=== PATIENT | female | born 1960 | race African-American/Black ===

== ENCOUNTER 2020-08-18 05:15 | Day surgery (SDC) | payer OTHER ==
[2020-08-16 18:12] VITALS: BMI 35.6
[2020-08-18] MEDS ORDERED: MIDAZOLAM HCL 2 MG/2 ML SINGLE DOSE VIAL ONE ×2 (14:38)
[2020-08-18] MEDS ORDERED: PROPOFOL 20 ML ONE (14:44)
[2020-08-18] MEDS ORDERED: ONDANSETRON 4 MG/2 ML VIAL IVPUSH PRN (15:26)
[2020-08-18] MEDS ORDERED: oxyCODONE HCL 5 MG TABLET PO PRN (15:26)
[2020-08-18] MEDS ORDERED: PROMETHAZINE HCL 25 MG/1 ML VIAL IVPB PRN (15:26)
[2020-08-18] MEDS ORDERED: LACTATED RINGERS SOLUTION 1,000 ML IV SCH (15:30)
[2020-08-18 16:37] VITALS: TEMP 97.8
[2020-08-18 17:08] VITALS: BP 162/88; PULSE 74
== END 2020-08-18 17:50 | disposition home or self-care (01) ==
LOC: JASU-SURG 05:15
PROVIDERS: ATTEND Obstetrics & Gynecology
PROC: 0UJD8ZZ Inspection of Uterus and Cervix, Via Natural or Artificial Opening Endoscopic (ICD-10-PCS; 2020-08-18)
PROC: 0UB97ZX Excision of Uterus, Via Natural or Artificial Opening, Diagnostic (ICD-10-PCS; principal; 2020-08-18 14:00)
PROC: 0UDB7ZX Extraction of Endometrium, Via Natural or Artificial Opening, Diagnostic (ICD-10-PCS; 2020-08-18 14:00)
DX: N95.0 Postmenopausal bleeding (principal); N84.0 Polyp of corpus uteri
CPT/HCPCS: 86850; 86900; 86901; 88305-TC; 94760

== ENCOUNTER 2020-10-07 02:56 | Emergency (ER) | payer OTHER ==
[2020-10-07 03:18] VITALS: PULSE 108; TEMP 97.6; BMI 34.3
[2020-10-07 03:25] VITALS: BP 180/96
[2020-10-07] MEDS ORDERED: guaiFENesin/D-METHORPHAN HB 10 ML UNIT-DOSE CUPS PO ONE (03:32)
[2020-10-07 03:44] LABS: BASO % 0.6 % (0-2.0); EOS % 2.6 % (0-4.5); HEMATOCRIT 43.7 % (32.4-45.2); HEMOGLOBIN 14.2 GM/dL (10.7-15.3); LYMPH % 27.9 % (8-40); MCH 29.1 pg (25.7-33.7); MCHC 32.5 g/dl (32.0-36.0); MEAN CELL VOLUME 89.5 fl (80-96); MEAN PLT VOLUME 9.2 fl (7.5-11.1); MONO % 4.6 % (3.8-10.2); NEUT % 64.3 % (42.8-82.8); PLATELET COUNT 270 K/MM3 (134-434); RBC 4.89 M/mm3 (3.60-5.2); RDW 15.3 % (11.6-15.6); WHITE BLOOD COUNT 8.2 K/mm3 (4.0-10.0)
[2020-10-07 04:02] LABS: CHLORIDE 108 mmol/L (98-107); POTASSIUM 3.5 mmol/L (3.5-5.1); SODIUM 142 mmol/L (136-145)
[2020-10-07 04:04] LABS: ALBUMIN 3.5 g/dl (3.4-5.0); ANION GAP 8 MMOL/L (8-16); BLOOD UREA NITROGEN 39.2 mg/dL (7-18); CALCIUM 8.9 mg/dL (8.5-10.1); CO2 26 mmol/L (21-32); GLUCOSE,RANDOM 140 mg/dL (74-106)
[2020-10-07 04:07] LABS: CREATININE 1.3 mg/dL (0.55-1.3); SGOT/AST 29 U/L (15-37); SGPT/ALT 35 U/L (13-61)
[2020-10-07 04:09] LABS: BILIRUBIN,TOTAL 0.3 mg/dL (0.2-1); TOT PROT 7.8 g/dl (6.4-8.2)
[2020-10-07 04:10] LABS: ALK PHOS 95 U/L (45-117)
[2020-10-07 04:12] LABS: N-TERMINAL BNP 1333.5 pg/ml (5-125)
[2020-10-07] MEDS ORDERED: methylPREDNISolone NA SUCC 125 MG/2 ML VIAL IVPUSH ONE (04:47)
[2020-10-07] MEDS ORDERED: AZITHROMYCIN 250 MG TABLET PO ONE (04:54)
[2020-10-07] MEDS ORDERED: guaiFENesin/D-METHORPHAN HB 10 ML UNIT-DOSE CUPS ONE (04:59)
[2020-10-07] MEDS ORDERED: methylPREDNISolone NA SUCC 125 MG/2 ML VIAL ONE (04:59)
[2020-10-07] MEDS ORDERED: AZITHROMYCIN 250 MG TABLET ONE (04:59)
== END 2020-10-07 05:44 | disposition home or self-care (01) ==
LOC: JER 02:56
PROC: 3E033GC Introduction of Other Therapeutic Substance into Peripheral Vein, Percutaneous Approach (ICD-10-PCS; principal; 2020-10-07)
DX: R05 Cough (principal); R06.2 Wheezing; Z11.52 Encounter for screening for COVID-19
CPT/HCPCS: 36415; 71045-TC-FY; 80053; 83880; 84484; 85025; 85730; 93005; 93010; 99285-25; C9803; U0003

== ENCOUNTER 2021-01-31 23:47 | Emergency (ER) | payer OTHER ==
[2021-02-01 00:19] VITALS: BP 167/80; PULSE 87; TEMP 98.9; BMI 32.3
[2021-02-01] MEDS ORDERED: methylPREDNISolone NA SUCC 125 MG/2 ML VIAL IVPUSH ONE (00:19)
[2021-02-01] MEDS ORDERED: ALBUTEROL SO4 2.5/IPRATROPIUM 0.5 INH SOL 3 ML VIAL.NEB. NEB ONE ×2 (00:20)
[2021-02-01] MEDS ORDERED: methylPREDNISolone NA SUCC 125 MG/2 ML VIAL ONE (00:20)
[2021-02-01] MEDS ORDERED: MAGNESIUM SULF 50% (8.12 MEQ/2 ML-1 GM VIAL) IVPB ONE (00:20)
[2021-02-01] MEDS ORDERED: MAGNESIUM SULFATE IN WATER 2 GM/50 ML IVPB IVPB ONE (00:20)
[2021-02-01 00:49] LABS: HEMATOCRIT 43.6 % (32.4-45.2); HEMOGLOBIN 14.1 GM/dL (10.7-15.3); MCHC 32.3 g/dl (32.0-36.0); MEAN CELL VOLUME 89.8 fl (80-96); MEAN PLT VOLUME 9.1 fl (7.5-11.1); PLATELET COUNT 255 K/MM3 (134-434); RBC 4.86 M/mm3 (3.60-5.2); RDW 15.5 % (11.6-15.6)
[2021-02-01 01:10] LABS: CHLORIDE 110 mmol/L (98-107); SODIUM 143 mmol/L (136-145)
[2021-02-01 01:12] LABS: CALCIUM 8.3 mg/dL (8.5-10.1)
[2021-02-01 01:13] LABS: ALBUMIN 3.7 g/dl (3.4-5.0); ANION GAP 6 MMOL/L (8-16); BLOOD UREA NITROGEN 36.9 mg/dL (7-18); CO2 27 mmol/L (21-32); GLUCOSE,RANDOM 129 mg/dL (74-106)
[2021-02-01 01:15] LABS: SGPT/ALT 24 U/L (13-61)
[2021-02-01 01:16] LABS: CREATININE 1.4 mg/dL (0.55-1.3); SGOT/AST 19 U/L (15-37)
[2021-02-01 01:17] LABS: BILIRUBIN,TOTAL 0.4 mg/dL (0.2-1); TOT PROT 7.8 g/dl (6.4-8.2)
[2021-02-01 01:18] LABS: ALK PHOS 81 U/L (45-117)
[2021-02-01] MEDS ORDERED: SODIUM CHLORIDE 0.9% 500 ML INFUS.BAG IV ONE (01:18)
== END 2021-02-01 02:28 | disposition home or self-care (01) ==
LOC: JER 23:47
PROC: 3E0F7GC Introduction of Other Therapeutic Substance into Respiratory Tract, Via Natural or Artificial Opening (ICD-10-PCS; principal; 2021-01-31)
PROC: 3E033GC Introduction of Other Therapeutic Substance into Peripheral Vein, Percutaneous Approach (ICD-10-PCS; 2021-01-31)
PROC: 3E033GC Introduction of Other Therapeutic Substance into Peripheral Vein, Percutaneous Approach (ICD-10-PCS; 2021-01-31)
DX: J45.901 Unspecified asthma with (acute) exacerbation (principal)
CPT/HCPCS: 36415; 71045-TC-FY; 80053; 84484; 85027; 93005; 93010; 99291

== ENCOUNTER 2021-02-18 02:43 | Emergency (ER) | payer OTHER ==
[2021-02-18] MEDS ORDERED: ALBUTEROL SO4 2.5/IPRATROPIUM 0.5 INH SOL 3 ML VIAL.NEB. NEB ONE (02:53)
[2021-02-18 03:01] VITALS: BP 161/93; TEMP 98.1; BMI 33.4
[2021-02-18] MEDS ORDERED: methylPREDNISolone NA SUCC 125 MG/2 ML VIAL IVPUSH ONE (03:57)
[2021-02-18] MEDS ORDERED: methylPREDNISolone NA SUCC 125 MG/2 ML VIAL ONE (04:01)
[2021-02-18 05:27] VITALS: PULSE 86
== END 2021-02-18 05:28 | disposition home or self-care (01) ==
LOC: JER 02:43
PROC: 3E033GC Introduction of Other Therapeutic Substance into Peripheral Vein, Percutaneous Approach (ICD-10-PCS; principal; 2021-02-18)
DX: R05 Cough (principal)
CPT/HCPCS: 71045-TC-FY; 93005; 93010; 99284-25

== ENCOUNTER 2021-10-21 22:29 | Observation (INO) | payer OTHER ==
[2021-10-21] MEDS ORDERED: ALBUTEROL SO4 2.5/IPRATROPIUM 0.5 INH SOL 3 ML VIAL.NEB. NEB ONE (23:03)
[2021-10-21] MEDS: ALBUTEROL SO4 2.5/IPRATROPIUM 0.5 INH SOL 3 ML VIAL.NEB. NEB SCH ×3 (23:10→23:45)
[2021-10-21 23:34] VITALS: BMI 33.3
[2021-10-21] MEDS ORDERED: ACETAMINOPHEN 325 MG TABLET (FP) PO ONE (23:50)
[2021-10-22] MEDS: ALBUTEROL SO4 2.5/IPRATROPIUM 0.5 INH SOL 3 ML VIAL.NEB. NEB SCH
[2021-10-22] MEDS ORDERED: NIFEdipine E.R. 90 MG TABLET PO ONE ×3 (00:18→23:50)
[2021-10-22] MEDS ORDERED: ACETAMINOPHEN 325 MG TABLET (FP) ONE (00:21)
[2021-10-22] MEDS ORDERED: NIFEdipine E.R. 30 MG TABLET ONE (00:21)
[2021-10-22] MEDS ORDERED: ALBUTEROL SO4 2.5/IPRATROPIUM 0.5 INH SOL 3 ML VIAL.NEB. NEB ONE (00:28)
[2021-10-22 03:03] LABS: HEMATOCRIT 43.4 % (32.4-45.2); HEMOGLOBIN 14.3 GM/dL (10.7-15.3); MCH 29.5 pg (25.7-33.7); MCHC 32.9 g/dl (32.0-36.0); MEAN CELL VOLUME 89.6 fl (80-96); MEAN PLT VOLUME 8.9 fl (7.5-11.1); PLATELET COUNT 248 10^3/uL (134-434); RBC 4.84 M/mm3 (3.60-5.2); RDW 15.2 % (11.6-15.6); WHITE BLOOD COUNT 9.3 K/mm3 (4.0-10.0)
[2021-10-22 03:18] LABS: CHLORIDE 111 mmol/L (98-107); SODIUM 143 mmol/L (136-145)
[2021-10-22 03:19] LABS: ALBUMIN 3.3 g/dl (3.4-5.0); ANION GAP 7 MMOL/L (8-16); BLOOD UREA NITROGEN 34.8 mg/dL (7-18); CALCIUM 9.1 mg/dL (8.5-10.1); CO2 25 mmol/L (21-32); GLUCOSE,RANDOM 154 mg/dL (74-106); MAGNESIUM 2.1 mg/dL (1.8-2.4)
[2021-10-22 03:23] LABS: CREATININE 1.6 mg/dL (0.55-1.3); SGOT/AST 25 U/L (15-37); SGPT/ALT 38 U/L (13-61)
[2021-10-22 03:24] LABS: BILIRUBIN,TOTAL 0.2 mg/dL (0.2-1); TOT PROT 7.4 g/dl (6.4-8.2)
[2021-10-22 03:25] LABS: ALK PHOS 79 U/L (45-117)
[2021-10-22] MEDS ORDERED: SODIUM CHLORIDE 1,000 ML IV STA (03:46)
[2021-10-22] MEDS ORDERED: AZITHROMYCIN 500 MG TABLET PO ONE (03:46)
[2021-10-22] MEDS ORDERED: AZITHROMYCIN 250 MG TABLET ONE (03:57)
[2021-10-22 04:23] LABS: ANISOCYTOSIS 0; HELMET CELLS 0; HOWELL-JOLLY BODIES 0; MACROCYTOSIS 0; OVALOCYTE 0; PLATELET ESTIMATE NORMAL; ROULEAU 0; SICKELED CELLS 0; TARGET CELLS 0; TEAR DROP CELLS 0; TOXIC GRANULATION 0
[2021-10-22] MEDS ORDERED: ALBUTEROL SO4 HFA INHALER IH PRN (07:33)
[2021-10-22] MEDS ORDERED: ALBUTEROL SO4 0.083% IH SOL 2.5 MG/3 ML VIAL.NEB. NEB PRN (08:01)
[2021-10-22] MEDS ORDERED: NIFEdipine E.R. 30 MG TABLET PO SCH (09:00)
[2021-10-22] MEDS ORDERED: NIFEdipine E.R. 90 MG TABLET PO SCH ×3 (09:00→19:00)
[2021-10-22] MEDS ORDERED: NIFEdipine E.R 60 MG TABLET PO SCH (09:00)
[2021-10-22] MEDS ORDERED: ASPIRIN 81 MG CHEWABLE TABLETS PO ONE (10:15)
[2021-10-22] MEDS: NIFEdipine E.R 60 MG TABLET PO SCH (10:18)
[2021-10-22] MEDS: NEBIVOLOL 10 MG TABLET (FP) PO SCH (10:20)
[2021-10-22] MEDS ORDERED: ASPIRIN 81 MG CHEWABLE TABLETS ONE (10:31)
[2021-10-22 12:30] LABS: BLOOD UREA NITROGEN 30.6 mg/dL (7-18); CALCIUM 8.5 mg/dL (8.5-10.1); MAGNESIUM 2.1 mg/dL (1.8-2.4)
[2021-10-22 12:33] LABS: PHOSPHOROUS 2.8 mg/dL (2.5-4.9)
[2021-10-22 12:35] LABS: CREATININE 1.4 mg/dL (0.55-1.3)
[2021-10-22] MEDS ORDERED: HEPARIN NA (PORCINE) 5,000 UNITS/ML 1ML VIAL ONE ×2 (13:21→21:34)
[2021-10-22] MEDS: HEPARIN NA (PORCINE) 5,000 UNITS/ML 1ML VIAL SQ SCH ×2 (13:28→21:44)
[2021-10-22 15:12] LABS: EPI CELLS >36 /uL (0-25.1); HYALINE CASTS 3 /uL (0-3.1); PH,URINE 6.5 (5.0-8.0); URINE APPEARANCE CLEAR; URINE BACTERIA 4 /uL (0-1359); URINE BILIRUBIN NEGATIVE (NEGATIVE); URINE COLOR YELLOW; URINE GLUCOSE (UA) NEGATIVE (NEGATIVE); URINE KETONE NEGATIVE (NEGATIVE); URINE LEUK ESTERASE NEGATIVE (NEGATIVE); URINE NITRITE NEGATIVE (NEGATIVE); URINE PROTEIN 4+ (NEGATIVE); URINE RBC 5 /uL (0-23.9); URINE UROBILINOGEN 0.2 mg/dL (0.2-1.0)
[2021-10-22 15:22] LABS: URINE WBC 61.2 /uL (0-25.8)
[2021-10-22] MEDS ORDERED: ATORVASTATIN CA 40 MG TABLET (FP) ONE (21:34)
[2021-10-22] MEDS ORDERED: ATORVASTATIN CA 40 MG TABLET (FP) PO SCH (22:00)
[2021-10-23] MEDS ORDERED: HEPARIN NA (PORCINE) 5,000 UNITS/ML 1ML VIAL ONE ×2 (06:17→15:13)
[2021-10-23] MEDS ORDERED: NIFEdipine E.R. 30 MG TABLET ONE (06:52)
[2021-10-23] MEDS: HEPARIN NA (PORCINE) 5,000 UNITS/ML 1ML VIAL SQ SCH (06:54)
[2021-10-23] MEDS: NIFEdipine E.R 60 MG TABLET PO SCH (06:55)
[2021-10-23] MEDS ORDERED: NIFEdipine E.R. 30 MG TABLET PO SCH ×2 (07:00)
[2021-10-23 07:08] VITALS: TEMP 98.2
[2021-10-23 08:05] LABS: HEMATOCRIT 39.2 % (32.4-45.2); HEMOGLOBIN 12.4 GM/dL (10.7-15.3); MCH 28.7 pg (25.7-33.7); MCHC 31.6 g/dl (32.0-36.0); MEAN CELL VOLUME 90.8 fl (80-96); MEAN PLT VOLUME 9.3 fl (7.5-11.1); PLATELET COUNT 243 10^3/uL (134-434); RBC 4.31 M/mm3 (3.60-5.2); RDW 15.5 % (11.6-15.6); WHITE BLOOD COUNT 8.5 K/mm3 (4.0-10.0)
[2021-10-23 08:13] LABS: BLOOD UREA NITROGEN 33.7 mg/dL (7-18); CALCIUM 7.9 mg/dL (8.5-10.1); MAGNESIUM 2.3 mg/dL (1.8-2.4)
[2021-10-23 08:17] LABS: CREATININE 1.3 mg/dL (0.55-1.3); PHOSPHOROUS 2.6 mg/dL (2.5-4.9)
[2021-10-23] MEDS ORDERED: ALBUTEROL SO4 HFA INHALER IH ONE (09:36)
[2021-10-23] MEDS ORDERED: ASPIRIN COATED 81 MG TABLET.EC PO SCH (10:00)
[2021-10-23] MEDS ORDERED: predniSONE 20 MG TABLET (UD) PO SCH (10:30)
[2021-10-23] MEDS ORDERED: predniSONE 20 MG TABLET (UD) ONE (11:25)
[2021-10-23] MEDS ORDERED: ASPIRIN COATED 81 MG TABLET.EC ONE (11:25)
[2021-10-23] MEDS: NEBIVOLOL 10 MG TABLET (FP) PO SCH (11:35)
[2021-10-23] MEDS ORDERED: AZITHROMYCIN 250 MG TABLET PO SCH (14:30)
[2021-10-23 15:32] VITALS: BP 148/79; PULSE 76
[2021-10-23] MEDS ORDERED: NIFEdipine E.R. 90 MG TABLET PO SCH (19:00)
== END 2021-10-23 19:41 | disposition home or self-care (01) ==
LOC: JER 22:29 → JERBED 10-22 03:45
PROVIDERS: ADMIT Internal Medicine; ATTEND Internal Medicine
PROC: 3E0F7GC Introduction of Other Therapeutic Substance into Respiratory Tract, Via Natural or Artificial Opening (ICD-10-PCS; principal; 2021-10-22)
PROC: 3E023GC Introduction of Other Therapeutic Substance into Muscle, Percutaneous Approach (ICD-10-PCS; 2021-10-22)
PROC: 3E0337Z Introduction of Electrolytic and Water Balance Substance into Peripheral Vein, Percutaneous Approach (ICD-10-PCS; 2021-10-22)
DX: I12.9 Hypertensive chronic kidney disease with stage 1 through stage 4 chronic kidney disease, or unspecified chronic kidney disease (principal); N18.9 Chronic kidney disease, unspecified; N17.9 Acute kidney failure, unspecified; J42 Unspecified chronic bronchitis; E78.5 Hyperlipidemia, unspecified; E66.8 Other obesity; Z68.33 Body mass index [BMI] 33.0-33.9, adult; Z29.9 Encounter for prophylactic measures, unspecified; R79.89 Other specified abnormal findings of blood chemistry
CPT/HCPCS: 36415; 71045-TC-FY; 76775-TC; 80048; 80053; 81003; 82550; 82570; 83036; 83735; 84100; 84300; 84484; 85025; 85027; 93005; 93010; 99285-25; C9803; G0378; J1644; U0003; U0005

== ENCOUNTER 2021-12-17 04:44 | Day surgery (SDC) | payer OTHER ==
[2021-12-13 11:34] VITALS: BMI 32.4
[2021-12-17] MEDS ORDERED: PROPOFOL 20 ML ONE (12:49)
[2021-12-17] MEDS ORDERED: MIDAZOLAM HCL 2 MG/2 ML SINGLE DOSE VIAL ONE (12:49)
[2021-12-17] MEDS ORDERED: ceFAZolin SODIUM 1 GM VIAL IVPB ONE (13:06)
[2021-12-17] MEDS ORDERED: oxyCODONE HCL 5 MG TABLET PO PRN (13:17)
[2021-12-17] MEDS ORDERED: ONDANSETRON 4 MG/2 ML VIAL IVPUSH PRN (13:17)
[2021-12-17] MEDS ORDERED: LACTATED RINGERS SOLUTION 1,000 ML IV SCH (13:30)
[2021-12-17] MEDS ORDERED: KETOROLAC TROMETHAMINE 30 MG/1 ML VIAL ONE (14:35)
[2021-12-17 16:37] VITALS: BP 152/76; PULSE 52; TEMP 96.9
== END 2021-12-17 17:05 | disposition home or self-care (01) ==
LOC: JASU-SURG 04:44
PROVIDERS: ATTEND Obstetrics & Gynecology
PROC: 0UB98ZX Excision of Uterus, Via Natural or Artificial Opening Endoscopic, Diagnostic (ICD-10-PCS; principal; 2021-12-17 11:00)
PROC: 0UDB7ZX Extraction of Endometrium, Via Natural or Artificial Opening, Diagnostic (ICD-10-PCS; 2021-12-17 11:00)
DX: N84.0 Polyp of corpus uteri (principal)
CPT/HCPCS: 88305-TC; 94760

== ENCOUNTER 2024-05-01 01:56 | Inpatient (IN) | payer OTHER ==
[2024-05-01] MEDS: ALBUTEROL SO4 2.5/IPRATROPIUM 0.5 INH SOL 3 ML VIAL.NEB. NEB SCH (02:14)
[2024-05-01] MEDS: methylPREDNISolone NA SUCC 125 MG/2 ML VIAL IVPUSH ONE (02:14)
[2024-05-01 02:19] VITALS: BMI 28.4
[2024-05-01] MEDS ORDERED: NITROGLYCERIN SUBLINGUAL 1/150 0.4 MG TAB ONE (02:22)
[2024-05-01] MEDS ORDERED: NITROGLYCERIN 25MG/D5W 250ML 25 MG/250 ML ML IVPB ONE (02:24)
[2024-05-01 02:26] LABS: BASO % 0.9 % (0-2.0); EOS % 4.7 % (0-4.5); HEMATOCRIT 41.5 % (32.4-45.2); HEMOGLOBIN 13.4 GM/dL (10.7-15.3); LYMPH % 44.9 % (8-40); MCHC 32.4 g/dl (32.0-36.0); MEAN CELL VOLUME 89.4 fl (80-96); MEAN PLT VOLUME 8.9 fl (7.5-11.1); MONO % 9.2 % (3.8-10.2); NEUT % 40.3 % (42.8-82.8); PLATELET COUNT 244 10^3/uL (134-434); RBC 4.63 M/mm3 (3.60-5.2); RDW 15.3 % (11.6-15.6); WHITE BLOOD COUNT 9.4 K/mm3 (4.0-10.0)
[2024-05-01] MEDS ORDERED: FUROSEMIDE 40 MG/4 ML INJECTABLE VIAL ONE (02:28)
[2024-05-01 02:39] LABS: INR 0.94 (0.83-1.09); PROTHROMBIN TIME (PATIENT) 10.6 SEC (9.7-13.0)
[2024-05-01] MEDS: NITROGLYCERIN SUBLINGUAL 1/150 0.4 MG TAB SL ONE (02:40)
[2024-05-01 02:42] LABS: ACTIVATED PTT 34.4 SECONDS (25.2-36.5)
[2024-05-01] MEDS: NITROGLYCERIN 25MG/D5W 250ML 25 MG/250 ML ML IVPB SCH (02:45)
[2024-05-01 02:48] LABS: POTASSIUM 3.7 mmol/L (3.5-5.1)
[2024-05-01 02:50] LABS: ALBUMIN 3.7 g/dl (3.4-5.0); CALCIUM 8.8 mg/dL (8.5-10.1)
[2024-05-01 02:51] LABS: BLOOD UREA NITROGEN 49.9 mg/dL (7-18); MAGNESIUM 2.2 mg/dL (1.8-2.4)
[2024-05-01 02:54] LABS: CREATININE 1.5 mg/dL (0.55-1.3); PHOSPHOROUS 3.5 mg/dL (2.5-4.9); VENOUS BASE EXCESS -8.9 mmol/L (-2-2); VENOUS O2 SATURATION 89.7 % (70-80); VENOUS PCO2 68.2 mmHg (38-52)
[2024-05-01 02:55] LABS: BILIRUBIN,TOTAL 0.4 mg/dL (0.2-1); TOT PROT 7.7 g/dl (6.4-8.2)
[2024-05-01 02:59] LABS: N-TERMINAL BNP 3481.5 pg/ml (5-125)
[2024-05-01] MEDS: FUROSEMIDE 40 MG/4 ML INJECTABLE VIAL IVPUSH ONE (03:00)
[2024-05-01 03:03] LABS: VENOUS PH 7.12 (7.310-7.410)
[2024-05-01 05:09] LABS: ARTERIAL BLD GAS O2 SATURATION 99.4 % (95-98); ARTERIAL BLOOD GAS PO2 212.7 mmHg (80-100); ARTERIAL BLOOD GAS pH 7.367 (7.350-7.450)
[2024-05-01 05:44] LABS: VENT MODE S/T; VENT RATE 12
[2024-05-01] MEDS ORDERED: HEPARIN NA (PORCINE) 5,000 UNITS/ML 1ML VIAL ONE (09:59)
[2024-05-01] MEDS: HEPARIN NA (PORCINE) 5,000 UNITS/ML 1ML VIAL SQ SCH (10:05)
[2024-05-01] MEDS ORDERED: ACETAMINOPHEN 500 MG TABLET (FP) ONE (11:01)
[2024-05-01] MEDS: ACETAMINOPHEN 325 MG TABLET (FP) PO PRN (12:00)
[2024-05-01] MEDS: EZETIMIBE 10 MG TABLET (FP) PO SCH (21:16)
[2024-05-02] MEDS: NIFEdipine E.R. 90 MG TABLET PO ONE (02:36)
[2024-05-02] MEDS: NEBIVOLOL 10 MG TABLET (FP) PO ONE (04:22)
[2024-05-02 08:14] LABS: EPI CELLS >36 /uL (0-25.1); HYALINE CASTS 0 /uL (0-3.1); PH,URINE 5.5 (5.0-8.0); URINE APPEARANCE CLEAR; URINE BACTERIA 418 /uL (0-1359); URINE BILIRUBIN NEGATIVE (NEGATIVE); URINE COLOR YELLOW; URINE GLUCOSE (UA) NEGATIVE (NEGATIVE); URINE KETONE NEGATIVE (NEGATIVE); URINE LEUK ESTERASE NEGATIVE (NEGATIVE); URINE NITRITE NEGATIVE (NEGATIVE); URINE PROTEIN 3+ (NEGATIVE); URINE RBC 8 /uL (0-23.9); URINE UROBILINOGEN 0.2 mg/dL (0.2-1.0); URINE WBC 8 /uL (0-25.8)
[2024-05-02] MEDS: FUROSEMIDE 40 MG/4 ML INJECTABLE VIAL IVPUSH SCH (15:44)
[2024-05-03 07:47] LABS: BASO % 1.1 % (0-2.0); EOS % 3.1 % (0-4.5); HEMATOCRIT 39.1 % (32.4-45.2); HEMOGLOBIN 12.6 GM/dL (10.7-15.3); LYMPH % 43.4 % (8-40); MCHC 32.3 g/dl (32.0-36.0); MEAN CELL VOLUME 89.7 fl (80-96); MEAN PLT VOLUME 9.4 fl (7.5-11.1); MONO % 7.3 % (3.8-10.2); NEUT % 45.1 % (42.8-82.8); PLATELET COUNT 218 10^3/uL (134-434); RBC 4.36 M/mm3 (3.60-5.2); RDW 15.4 % (11.6-15.6); WHITE BLOOD COUNT 6.8 K/mm3 (4.0-10.0)
[2024-05-03 08:11] LABS: POTASSIUM 3.8 mmol/L (3.5-5.1)
[2024-05-03 08:18] LABS: ALBUMIN 3.2 g/dl (3.4-5.0); CALCIUM 8.5 mg/dL (8.5-10.1)
[2024-05-03 08:19] LABS: BLOOD UREA NITROGEN 50.8 mg/dL (7-18)
[2024-05-03 08:21] LABS: BILIRUBIN,TOTAL 0.4 mg/dL (0.2-1); TOT PROT 6.8 g/dl (6.4-8.2)
[2024-05-03 08:22] LABS: CREATININE 1.5 mg/dL (0.55-1.3)
[2024-05-03] MEDS: NEBIVOLOL 10 MG TABLET (FP) PO SCH (09:12)
[2024-05-03] MEDS: NIFEdipine E.R. 90 MG TABLET PO SCH (09:13)
[2024-05-03 14:23] LABS: EPI CELLS 5 /uL (0-25.1); HYALINE CASTS 0 /uL (0-3.1); URINE APPEARANCE CLEAR; URINE BACTERIA 14 /uL (0-1359); URINE BILIRUBIN NEGATIVE (NEGATIVE); URINE COLOR YELLOW; URINE GLUCOSE (UA) NEGATIVE (NEGATIVE); URINE KETONE NEGATIVE (NEGATIVE); URINE LEUK ESTERASE NEGATIVE (NEGATIVE); URINE NITRITE NEGATIVE (NEGATIVE); URINE PROTEIN 1+ (NEGATIVE); URINE RBC 4 /uL (0-23.9); URINE UROBILINOGEN 0.2 mg/dL (0.2-1.0); URINE WBC 3 /uL (0-25.8)
[2024-05-03] MEDS: ACETAMINOPHEN 1000 MG/100 ML BAG IVPB PRN (22:56)
[2024-05-04 08:48] LABS: BASO % 0.8 % (0-2.0); EOS % 4.7 % (0-4.5); HEMATOCRIT 36.1 % (32.4-45.2); HEMOGLOBIN 12.1 GM/dL (10.7-15.3); LYMPH % 41.9 % (8-40); MCH 29.5 pg (25.7-33.7); MCHC 33.5 g/dl (32.0-36.0); MEAN CELL VOLUME 88.1 fl (80-96); MEAN PLT VOLUME 9.1 fl (7.5-11.1); MONO % 9.6 % (3.8-10.2); PLATELET COUNT 208 10^3/uL (134-434); RDW 15.4 % (11.6-15.6); WHITE BLOOD COUNT 5.3 K/mm3 (4.0-10.0)
[2024-05-04 09:18] LABS: POTASSIUM 3.7 mmol/L (3.5-5.1)
[2024-05-04 09:23] LABS: ALBUMIN 2.9 g/dl (3.4-5.0); CALCIUM 8.4 mg/dL (8.5-10.1)
[2024-05-04 09:25] LABS: BLOOD UREA NITROGEN 50.1 mg/dL (7-18)
[2024-05-04 09:28] LABS: CREATININE 1.6 mg/dL (0.55-1.3)
[2024-05-04 09:29] LABS: BILIRUBIN,TOTAL 0.7 mg/dL (0.2-1); TOT PROT 6.2 g/dl (6.4-8.2)
[2024-05-04] MEDS: ATORVASTATIN CA 40 MG TABLET (FP) PO SCH (21:13)
[2024-05-05] MEDS: EMPAGLIFLOZIN (JARDIANCE) 10 MG TABLET PO SCH (06:49)
[2024-05-05 08:23] LABS: BASO % 0.9 % (0-2.0); EOS % 5.1 % (0-4.5); HEMATOCRIT 39.1 % (32.4-45.2); HEMOGLOBIN 12.8 GM/dL (10.7-15.3); LYMPH % 26.4 % (8-40); MCHC 32.8 g/dl (32.0-36.0); MEAN CELL VOLUME 88.3 fl (80-96); MEAN PLT VOLUME 8.7 fl (7.5-11.1); MONO % 9.4 % (3.8-10.2); NEUT % 58.2 % (42.8-82.8); PLATELET COUNT 222 10^3/uL (134-434); RBC 4.43 M/mm3 (3.60-5.2); RDW 15.4 % (11.6-15.6); WHITE BLOOD COUNT 6.1 K/mm3 (4.0-10.0)
[2024-05-05 08:38] LABS: POTASSIUM 3.7 mmol/L (3.5-5.1)
[2024-05-05 08:41] LABS: ALBUMIN 3.2 g/dl (3.4-5.0); BLOOD UREA NITROGEN 49.2 mg/dL (7-18); CALCIUM 8.8 mg/dL (8.5-10.1)
[2024-05-05 08:45] LABS: CREATININE 1.6 mg/dL (0.55-1.3)
[2024-05-05 08:46] LABS: BILIRUBIN,TOTAL 0.8 mg/dL (0.2-1)
[2024-05-05] MEDS: SACUBITRIL/VALSARTAN 24 MG-26 MG TABLET PO SCH (09:30)
[2024-05-05] MEDS: NEBIVOLOL 10 MG TABLET (FP) PO SCH (09:30)
[2024-05-06 04:09] VITALS: TEMP 98.4
[2024-05-06] MEDS: SPIRONOLACTONE 25 MG TABLET PO SCH (10:04)
[2024-05-06 13:37] LABS: CALCIUM 9.4 mg/dL (8.5-10.1)
[2024-05-06 13:38] LABS: MAGNESIUM 2.3 mg/dL (1.8-2.4)
[2024-05-06 13:41] LABS: CREATININE 1.7 mg/dL (0.55-1.3); PHOSPHOROUS 3.6 mg/dL (2.5-4.9)
[2024-05-06 15:16] VITALS: BP 150/85; PULSE 68; RESP 18
== END 2024-05-06 17:15 | disposition home or self-care (01) | DRG 291 ==
LOC: JER 01:56 → JERBED 05:13 → OBSVTOIN 06:58 → JERBED 19:27 → J4W 20:34
PROVIDERS: ADMIT Internal Medicine; ATTEND Internal Medicine
DX: I13.0 Hypertensive heart and chronic kidney disease with heart failure and stage 1 through stage 4 chronic kidney disease, or unspecified chronic kidney disease (principal); I50.23 Acute on chronic systolic (congestive) heart failure; J96.22 Acute and chronic respiratory failure with hypercapnia; I16.1 Hypertensive emergency; I10 Essential (primary) hypertension; E78.5 Hyperlipidemia, unspecified; N18.9 Chronic kidney disease, unspecified; J44.9 Chronic obstructive pulmonary disease, unspecified
CPT/HCPCS: 0241U-QW; 36415; 36600; 71045-TC-FY; 71046-TC-FY; 76775-TC; 76856-TC; 80048; 80053; 80061; 81003; 82043; 82570; 82803; 83036; 83735; 83880; 84100; 84443; 84484; 85025; 85610; 85730; 86850; 86900; 86901; 93005; 93010; 93306-TC; 94660; 99285-25; G0378; J0131; J1644

== ENCOUNTER 2024-06-10 04:25 | Inpatient (IN) | payer OTHER ==
[2024-06-10] MEDS: ROCURONIUM BROMIDE 50 MG/5 ML VIAL IV ONE (04:35)
[2024-06-10] MEDS: ETOMIDATE 40 MG/20 ML VIAL IVPUSH ONE (04:35)
[2024-06-10] MEDS: NITROGLYCERIN 25MG/D5W 250ML 25 MG/250 ML ML IVPB SCH (04:55)
[2024-06-10] MEDS: PROPOFOL 1,000,000 MCG/100 ML VIAL IVPB SCH (05:00)
[2024-06-10] MEDS ORDERED: FUROSEMIDE 40 MG/4 ML INJECTABLE VIAL ONE (05:22)
[2024-06-10] MEDS: FUROSEMIDE 40 MG/4 ML INJECTABLE VIAL IVPUSH ONE ×2 (05:27→16:41)
[2024-06-10 05:33] LABS: HEMATOCRIT 45.2 % (32.4-45.2); HEMOGLOBIN 13.8 GM/dL (10.7-15.3); MCH 28.7 pg (25.7-33.7); MCHC 30.5 g/dl (32.0-36.0); MEAN CELL VOLUME 94.2 fl (80-96); MEAN PLT VOLUME 9.1 fl (7.5-11.1); PLATELET COUNT 317 10^3/uL (134-434); RDW 17.2 % (11.6-15.6)
[2024-06-10] MEDS: NITROPRUSSIDE SODIUM 50,000 MCG in DEXTROSE 5%-WATER - 248 ML IVPB SCH (05:45)
[2024-06-10 05:56] LABS: VENOUS PCO2 105.1 mmHg (38-52)
[2024-06-10 06:01] LABS: POTASSIUM 4.6 mmol/L (3.5-5.1)
[2024-06-10 06:03] LABS: ALBUMIN 3.7 g/dl (3.4-5.0); CALCIUM 8.9 mg/dL (8.5-10.1); VENOUS PH 6.915 (7.310-7.410)
[2024-06-10 06:04] LABS: BLOOD UREA NITROGEN 41.1 mg/dL (7-18); MAGNESIUM 2.7 mg/dL (1.8-2.4)
[2024-06-10 06:06] LABS: PHOSPHOROUS 5.1 mg/dL (2.5-4.9)
[2024-06-10 06:08] LABS: BILIRUBIN,TOTAL 0.4 mg/dL (0.2-1); TOT PROT 7.8 g/dl (6.4-8.2)
[2024-06-10 06:21] LABS: LACTIC ACID 3.9 mmol/L (0.4-2.0)
[2024-06-10 06:22] LABS: INR 0.95 (0.83-1.09); PROTHROMBIN TIME (PATIENT) 10.7 SEC (9.7-13.0)
[2024-06-10 06:25] LABS: ACTIVATED PTT 31.8 SECONDS (25.2-36.5)
[2024-06-10 06:38] LABS: EPI CELLS >36 /uL (0-25.1); HYALINE CASTS 1 /uL (0-3.1); PH,URINE 5.5 (5.0-8.0); URINE APPEARANCE CLOUDY; URINE BACTERIA 681 /uL (0-1359); URINE BILIRUBIN NEGATIVE (NEGATIVE); URINE COLOR YELLOW; URINE GLUCOSE (UA) NEGATIVE (NEGATIVE); URINE KETONE NEGATIVE (NEGATIVE); URINE LEUK ESTERASE NEGATIVE (NEGATIVE); URINE NITRITE NEGATIVE (NEGATIVE); URINE PROTEIN 3+ (NEGATIVE); URINE RBC 12 /uL (0-23.9); URINE UROBILINOGEN 0.2 mg/dL (0.2-1.0)
[2024-06-10] MEDS ORDERED: MIDAZOLAM IN 0.9 % SOD.CHLORID 1 MG/1 ML PLAST..BAG ONE (06:44)
[2024-06-10] MEDS: MIDAZOLAM 100 MG in SODIUM CHLORIDE 100 ML IVPB SCH (06:50)
[2024-06-10] MEDS ORDERED: MIDAZOLAM HCL 2 MG/2 ML SINGLE DOSE VIAL ONE (07:22)
[2024-06-10] MEDS ORDERED: fentaNYL CITRATE/PF 1,000 MCG/20 ML AMPUL IVPUSH ONE (07:33)
[2024-06-10] MEDS ORDERED: VANCOMYCIN 1,000 MG in DEXTROSE 5%-WATER - 250 ML IVPB ONE (07:34)
[2024-06-10] MEDS: MIDAZOLAM HCL 2 MG/2 ML SINGLE DOSE VIAL IVPUSH ONE ×2 (07:35→10:51)
[2024-06-10] MEDS ORDERED: FENTANYL CITRATE/PF 50 MCG/ML VIAL ONE ×3 (07:39→08:37)
[2024-06-10] MEDS: fentaNYL CITRATE 250 MCG/5 ML VIAL IVPUSH ONE (07:46)
[2024-06-10] MEDS: SODIUM CHLORIDE 0.9% 500 ML INFUS.BAG IV ONE (07:58)
[2024-06-10] MEDS ORDERED: NOREPINEPHRINE BITARTRATE 4 MG/4 ML ML IV ONE (08:02)
[2024-06-10 08:40] LABS: ANISOCYTOSIS 0; MACROCYTOSIS 0
[2024-06-10 08:44] LABS: URINE WBC 66.4 /uL (0-25.8)
[2024-06-10] MEDS ORDERED: PIPERACILLIN/TAZOB 3.375 GM 3.375 GM/50 ML BAG IVPB ONE (08:56)
[2024-06-10] MEDS: PIPERACILLIN/TAZOB 3.375 GM 3.375 GM in DEXTROSE 5%-WATER - 50 ML IVPB ONE (08:59)
[2024-06-10] MEDS: VANCOMYCIN/WATER FOR INJ (PEG) 1,000 MG/200 ML BAG IVPB ONE (09:32)
[2024-06-10] MEDS: MIDAZOLAM IN 0.9 % SOD.CHLORID 100 MG/100 ML PLAST..BAG IVPB SCH (09:33)
[2024-06-10] MEDS ORDERED: MIDAZOLAM 100 MG in SODIUM CHLORIDE 100 ML IVPB SCH (09:45)
[2024-06-10] MEDS ORDERED: MUPIROCIN 2% TOPICAL OINTMENT FOR DECOLONIZATION NS SCH (10:00)
[2024-06-10] MEDS: MUPIROCIN 2% TOPICAL OINTMENT FOR DECOLONIZATION NS SCH (10:41)
[2024-06-10 10:42] LABS: ARTERIAL BLD GAS O2 SATURATION 99.3 % (95-98); ARTERIAL BLOOD GAS BASE EXCESS -7.4 mmol/L (-2-2); ARTERIAL BLOOD GAS PO2 228.9 mmHg (80-100); ARTERIAL BLOOD GAS pH 7.225 (7.350-7.450)
[2024-06-10] MEDS: NOREPINEPHRINE BITARTRATE 4,000 MCG in DEXTROSE 5%-WATER - 496 ML IV SCH (12:38)
[2024-06-10] MEDS: FENTANYL NS IVPB 500 MCG/100 ML BAG IVPB SCH (13:15)
[2024-06-10] MEDS: PIPERACILLIN/TAZOB 3.375 GM 3.375 GM in DEXTROSE 5%-WATER - 50 ML IVPB SCH (15:43)
[2024-06-10] MEDS: HEPARIN NA (PORCINE) 5,000 UNITS/ML 1ML VIAL SQ SCH (15:43)
[2024-06-10] MEDS: DEXMEDETOMIDINE PREMIX 400 MCG/100 ML BAG IVPB SCH (16:41)
[2024-06-10] MEDS: MIDAZOLAM HCL 10 MG/10 ML VIAL IVPUSH ONE (16:41)
[2024-06-10] MEDS: CHLORHEXIDINE GLUCONATE 4% CLEANSER FOR DECOLONIZATION TP SCH (21:16)
[2024-06-10] MEDS ORDERED: CHLORHEXIDINE GLUCONATE 4% CLEANSER FOR DECOLONIZATION TP SCH (22:00)
[2024-06-11] MEDS ORDERED: DEXTROSE 50%-WATER 25 GM/50 ML DISP.SYRIN ONE (05:29)
[2024-06-11] MEDS: DEXTROSE 50%-WATER - 25 GM/50 ML VIAL IVPUSH ONE (06:49)
[2024-06-11] MEDS: FUROSEMIDE 40 MG/4 ML INJECTABLE VIAL IVPUSH ONE (06:51)
[2024-06-11 07:11] LABS: BASO % 0.4 % (0-2.0); HEMATOCRIT 36.5 % (32.4-45.2); HEMOGLOBIN 11.3 GM/dL (10.7-15.3); LYMPH % 10.2 % (8-40); MCH 28.4 pg (25.7-33.7); MCHC 30.9 g/dl (32.0-36.0); MEAN CELL VOLUME 91.8 fl (80-96); MEAN PLT VOLUME 9.1 fl (7.5-11.1); MONO % 5.7 % (3.8-10.2); NEUT % 83.7 % (42.8-82.8); PLATELET COUNT 208 10^3/uL (134-434); RBC 3.97 M/mm3 (3.60-5.2); RDW 16.6 % (11.6-15.6); WHITE BLOOD COUNT 11.1 K/mm3 (4.0-10.0)
[2024-06-11 07:28] LABS: POTASSIUM 4.6 mmol/L (3.5-5.1)
[2024-06-11 07:33] LABS: BLOOD UREA NITROGEN 47.2 mg/dL (7-18); CALCIUM 8.6 mg/dL (8.5-10.1)
[2024-06-11 07:34] LABS: MAGNESIUM 2.3 mg/dL (1.8-2.4)
[2024-06-11 07:36] LABS: CREATININE 2.4 mg/dL (0.55-1.3); PHOSPHOROUS 4.6 mg/dL (2.5-4.9)
[2024-06-11 07:38] LABS: BILIRUBIN,TOTAL 0.6 mg/dL (0.2-1)
[2024-06-11 07:39] LABS: ALBUMIN 2.8 g/dl (3.4-5.0)
[2024-06-11 13:57] VITALS: BMI 31.2
[2024-06-11] MEDS: PIPERACILLIN/TAZOB 3.375 GM 3.375 GM in DEXTROSE 5%-WATER - 50 ML IVPB SCH (17:47)
[2024-06-11 19:41] LABS: EPI CELLS 34 /uL (0-25.1); HYALINE CASTS 1 /uL (0-3.1); PH,URINE 5.5 (5.0-8.0); URINE APPEARANCE CLEAR; URINE BACTERIA 15 /uL (0-1359); URINE BILIRUBIN NEGATIVE (NEGATIVE); URINE COLOR YELLOW; URINE GLUCOSE (UA) NEGATIVE (NEGATIVE); URINE KETONE NEGATIVE (NEGATIVE); URINE LEUK ESTERASE TRACE (NEGATIVE); URINE NITRITE NEGATIVE (NEGATIVE); URINE PROTEIN 1+ (NEGATIVE); URINE RBC 8 /uL (0-23.9); URINE UROBILINOGEN 0.2 mg/dL (0.2-1.0); URINE WBC 29 /uL (0-25.8)
[2024-06-11] MEDS: ALBUTEROL SO4 2.5/IPRATROPIUM 0.5 INH SOL 3 ML VIAL.NEB. NEB PRN (21:06)
[2024-06-11] MEDS: ATORVASTATIN CA 40 MG TABLET (FP) PO SCH (22:19)
[2024-06-11] MEDS: EZETIMIBE 10 MG TABLET (FP) PO SCH (22:19)
[2024-06-12 06:18] LABS: BASO % 0.5 % (0-2.0); EOS % 0.5 % (0-4.5); HEMATOCRIT 33.6 % (32.4-45.2); HEMOGLOBIN 10.7 GM/dL (10.7-15.3); LYMPH % 19.3 % (8-40); MCH 28.7 pg (25.7-33.7); MCHC 31.7 g/dl (32.0-36.0); MEAN CELL VOLUME 90.4 fl (80-96); MEAN PLT VOLUME 8.6 fl (7.5-11.1); MONO % 7.8 % (3.8-10.2); NEUT % 71.9 % (42.8-82.8); PLATELET COUNT 223 10^3/uL (134-434); RBC 3.72 M/mm3 (3.60-5.2); WHITE BLOOD COUNT 7.1 K/mm3 (4.0-10.0)
[2024-06-12 06:31] LABS: POTASSIUM 3.8 mmol/L (3.5-5.1)
[2024-06-12 06:37] LABS: CALCIUM 8.5 mg/dL (8.5-10.1)
[2024-06-12 06:38] LABS: ALBUMIN 2.6 g/dl (3.4-5.0); BLOOD UREA NITROGEN 40.3 mg/dL (7-18); MAGNESIUM 2.3 mg/dL (1.8-2.4)
[2024-06-12 06:40] LABS: CREATININE 2.3 mg/dL (0.55-1.3)
[2024-06-12 06:41] LABS: PHOSPHOROUS 4.1 mg/dL (2.5-4.9)
[2024-06-12 06:42] LABS: BILIRUBIN,TOTAL 0.6 mg/dL (0.2-1); TOT PROT 5.8 g/dl (6.4-8.2)
[2024-06-12] MEDS: hydrALAZINE HCL 50 MG TABLET (FP) PO ONE (20:09)
[2024-06-12] MEDS: hydrALAZINE HCL 50 MG TABLET (FP) PO SCH (21:07)
[2024-06-12] MEDS ORDERED: PATIENT'S OWN MEDICATION (NON-FORMULARY) (Hydralazine Hcl [Hydralazine Hcl] 100 MG Tablet) PO SCH (22:00)
[2024-06-13] MEDS: LABETALOL HCL 5 MG/1 ML (100MG/20 ML VIAL) IVPUSH ONE (00:07)
[2024-06-13] MEDS ORDERED: ALBUTEROL SO4 2.5/IPRATROPIUM 0.5 INH SOL 3 ML VIAL.NEB. NEB PRN (01:33)
[2024-06-13] MEDS: PIPERACILLIN/TAZOB 3.375 GM 3.375 GM in DEXTROSE 5%-WATER - 50 ML IVPB SCH (03:43)
[2024-06-13] MEDS: HEPARIN NA (PORCINE) 5,000 UNITS/ML 1ML VIAL SQ SCH (05:28)
[2024-06-13] MEDS: ASPIRIN 81 MG CHEWABLE TABLETS PO SCH (09:10)
[2024-06-13] MEDS: metoPROLOL SUCCINATE 25 MG TAB.SR.24H (FP) PO SCH (09:18)
[2024-06-13] MEDS: ACETAMINOPHEN 325 MG TABLET (FP) PO PRN (17:35)
[2024-06-13] MEDS: ATORVASTATIN CA 40 MG TABLET (FP) PO SCH (21:51)
[2024-06-13] MEDS: EZETIMIBE 10 MG TABLET (FP) PO SCH (21:52)
[2024-06-14 08:18] LABS: POTASSIUM 3.8 mmol/L (3.5-5.1)
[2024-06-14 08:20] LABS: CALCIUM 8.8 mg/dL (8.5-10.1)
[2024-06-14 08:21] LABS: ALBUMIN 2.9 g/dl (3.4-5.0)
[2024-06-14 08:24] LABS: CREATININE 1.8 mg/dL (0.55-1.3)
[2024-06-14 08:25] LABS: BILIRUBIN,TOTAL 0.8 mg/dL (0.2-1); TOT PROT 6.3 g/dl (6.4-8.2)
[2024-06-14 08:27] LABS: BASO % 0.4 % (0-2.0); HEMOGLOBIN 11.1 GM/dL (10.7-15.3); LYMPH % 13.9 % (8-40); MCH 28.4 pg (25.7-33.7); MCHC 31.7 g/dl (32.0-36.0); MEAN CELL VOLUME 89.7 fl (80-96); MEAN PLT VOLUME 9.4 fl (7.5-11.1); MONO % 9.8 % (3.8-10.2); NEUT % 73.9 % (42.8-82.8); PLATELET COUNT 230 10^3/uL (134-434); RDW 15.7 % (11.6-15.6); WHITE BLOOD COUNT 7.5 K/mm3 (4.0-10.0)
[2024-06-14] MEDS: ISOSORBIDE DINITRATE 10 MG TABLET PO SCH (09:14)
[2024-06-14] MEDS ORDERED: ALBUTEROL SO4 2.5/IPRATROPIUM 0.5 INH SOL 3 ML VIAL.NEB. NEB PRN (14:53)
[2024-06-14] MEDS: PIPERACILLIN/TAZOB 3.375 GM 3.375 GM in DEXTROSE 5%-WATER - 50 ML IVPB SCH ×2 (17:02→19:25)
[2024-06-14] MEDS: ATORVASTATIN CA 40 MG TABLET (FP) PO SCH (22:40)
[2024-06-14] MEDS: hydrALAZINE HCL 50 MG TABLET (FP) PO SCH (22:40)
[2024-06-14] MEDS: metoPROLOL SUCCINATE 25 MG TAB.SR.24H (FP) PO SCH (22:40)
[2024-06-14] MEDS: HEPARIN NA (PORCINE) 5,000 UNITS/ML 1ML VIAL SQ SCH (22:41)
[2024-06-14] MEDS: EZETIMIBE 10 MG TABLET (FP) PO SCH (22:41)
[2024-06-15] MEDS: ASPIRIN 81 MG CHEWABLE TABLETS PO SCH (09:54)
[2024-06-15] MEDS: EMPAGLIFLOZIN (JARDIANCE) 10 MG TABLET PO SCH (14:56)
[2024-06-15] MEDS: SACUBITRIL/VALSARTAN 24 MG-26 MG TABLET PO SCH (14:56)
[2024-06-15 16:00] LABS: URIC ACID 6.3 mg/dL (2.6-7.2)
[2024-06-15] MEDS: predniSONE 20 MG TABLET (UD) PO SCH (22:00)
[2024-06-15] MEDS: COLCHICINE 0.6 MG TAB PO SCH (22:00)
[2024-06-16 08:24] LABS: POTASSIUM 4.3 mmol/L (3.5-5.1)
[2024-06-16 08:25] LABS: BASO % 0.5 % (0-2.0); EOS % 0.2 % (0-4.5); HEMATOCRIT 34.1 % (32.4-45.2); HEMOGLOBIN 11.1 GM/dL (10.7-15.3); LYMPH % 17.4 % (8-40); MCH 28.8 pg (25.7-33.7); MCHC 32.4 g/dl (32.0-36.0); MEAN CELL VOLUME 88.7 fl (80-96); MEAN PLT VOLUME 8.9 fl (7.5-11.1); MONO % 3.9 % (3.8-10.2); PLATELET COUNT 266 10^3/uL (134-434); RBC 3.84 M/mm3 (3.60-5.2); RDW 15.5 % (11.6-15.6); WHITE BLOOD COUNT 4.8 K/mm3 (4.0-10.0)
[2024-06-16 08:30] LABS: CALCIUM 8.7 mg/dL (8.5-10.1)
[2024-06-16 08:31] LABS: ALBUMIN 2.7 g/dl (3.4-5.0)
[2024-06-16 08:33] LABS: URIC ACID 7.4 mg/dL (2.6-7.2)
[2024-06-16 08:35] LABS: BILIRUBIN,TOTAL 0.4 mg/dL (0.2-1); TOT PROT 6.2 g/dl (6.4-8.2)
[2024-06-16] MEDS: AMOX TR/POT CLAV 500MG/125MG TABLETS (FP) PO SCH (09:30)
[2024-06-16 14:50] VITALS: BP 136/81; PULSE 88; RESP 18; TEMP 98.2
== END 2024-06-16 17:42 | disposition home or self-care (01) | DRG 208 ==
LOC: JER 04:25 → JERBED 04:56 → JICU 09:25 → J6S 06-13 01:26 → J4W 06-13 11:16
PROVIDERS: ADMIT Internal Medicine; ATTEND Internal Medicine
PROC: 5A1945Z Respiratory Ventilation, 24-96 Consecutive Hours (ICD-10-PCS; principal; 2024-06-10)
PROC: 0BH17EZ Insertion of Endotracheal Airway into Trachea, Via Natural or Artificial Opening (ICD-10-PCS; 2024-06-10)
DX: J96.01 Acute respiratory failure with hypoxia (principal); I50.23 Acute on chronic systolic (congestive) heart failure; J18.9 Pneumonia, unspecified organism; I13.0 Hypertensive heart and chronic kidney disease with heart failure and stage 1 through stage 4 chronic kidney disease, or unspecified chronic kidney disease; R57.9 Shock, unspecified; N17.9 Acute kidney failure, unspecified; E87.20 Acidosis, unspecified; J96.02 Acute respiratory failure with hypercapnia; I16.0 Hypertensive urgency; N18.9 Chronic kidney disease, unspecified; M10.9 Gout, unspecified; E78.5 Hyperlipidemia, unspecified; J44.9 Chronic obstructive pulmonary disease, unspecified
CPT/HCPCS: 0241U-QW; 36415; 36600; 71045-TC-FY; 76775-TC; 80053; 81003; 82803; 82962; 83036; 83605; 83735; 84100; 84484; 84550; 85025; 85610; 85730; 86850; 86900; 86901; 87040; 87070; 87086; 87205; 87899; 93005; 93010; 93306-TC; 93970-TC; 94002; 94640; 99291; J1644

== ENCOUNTER 2024-06-27 23:25 | Inpatient (IN) | payer OTHER ==
[2024-06-27] MEDS: NITROGLYCERIN 25MG/D5W 250ML 25 MG/250 ML ML IVPB SCH (23:53)
[2024-06-28] MEDS ORDERED: NITROGLYCERIN 25MG/D5W 250ML 25 MG/250 ML ML IVPB ONE (00:04)
[2024-06-28] MEDS: NITROGLYCERIN 50MG/D5W 250ML 50 MG/250 ML ML IVPB SCH (00:27)
[2024-06-28] MEDS: NITROGLYCERIN 25MG/D5W 250ML 25 MG/250 ML ML IVPB SCH ×2 (00:35→01:40)
[2024-06-28] MEDS: NITROGLYCERIN 50 MG/10 ML VIAL IVPB ONE (01:25)
[2024-06-28 01:53] LABS: BASO % 0.7 % (0-2.0); EOS % 0.7 % (0-4.5); HEMATOCRIT 37.5 % (32.4-45.2); HEMOGLOBIN 11.5 GM/dL (10.7-15.3); LYMPH % 24.9 % (8-40); MCH 27.9 pg (25.7-33.7); MCHC 30.6 g/dl (32.0-36.0); MEAN CELL VOLUME 91.3 fl (80-96); MEAN PLT VOLUME 9.4 fl (7.5-11.1); MONO % 4.3 % (3.8-10.2); NEUT % 69.4 % (42.8-82.8); PLATELET COUNT 358 10^3/uL (134-434); WHITE BLOOD COUNT 13.7 K/mm3 (4.0-10.0)
[2024-06-28] MEDS ORDERED: FUROSEMIDE 40 MG/4 ML INJECTABLE VIAL ONE (02:01)
[2024-06-28 02:11] LABS: POTASSIUM 4.6 mmol/L (3.5-5.1)
[2024-06-28] MEDS: FUROSEMIDE 40 MG/4 ML INJECTABLE VIAL IVPUSH ONE (02:11)
[2024-06-28 02:13] LABS: CALCIUM 8.5 mg/dL (8.5-10.1)
[2024-06-28 02:14] LABS: BLOOD UREA NITROGEN 57.2 mg/dL (7-18); MAGNESIUM 2.3 mg/dL (1.8-2.4); VENOUS BASE EXCESS -7.5 mmol/L (-2-2); VENOUS O2 SATURATION 65.3 % (70-80); VENOUS PCO2 39.1 mmHg (38-52); VENOUS PH 7.292 (7.310-7.410)
[2024-06-28 02:17] LABS: CREATININE 1.9 mg/dL (0.55-1.3)
[2024-06-28 02:18] LABS: BILIRUBIN,TOTAL 0.4 mg/dL (0.2-1); TOT PROT 6.1 g/dl (6.4-8.2)
[2024-06-28 02:22] LABS: N-TERMINAL BNP 10868.4 pg/ml (5-125)
[2024-06-28 02:44] LABS: URINE APPEARANCE CLEAR; URINE BILIRUBIN NEGATIVE (NEGATIVE); URINE COLOR YELLOW; URINE GLUCOSE (UA) 2+ (NEGATIVE); URINE KETONE NEGATIVE (NEGATIVE); URINE LEUK ESTERASE NEGATIVE (NEGATIVE); URINE NITRITE NEGATIVE (NEGATIVE); URINE PROTEIN TRACE (NEGATIVE); URINE UROBILINOGEN 0.2 mg/dL (0.2-1.0)
[2024-06-28] MEDS ORDERED: FUROSEMIDE INJECTION 100 MG in SODIUM CHLORIDE 90 ML IVPB SCH (08:00)
[2024-06-28] MEDS: ALBUTEROL SO4 0.083% IH SOL 2.5 MG/3 ML VIAL.NEB. NEB SCH ×2 (08:15→20:55)
[2024-06-28] MEDS: metoPROLOL SUCCINATE 25 MG TAB.SR.24H (FP) PO SCH (10:04)
[2024-06-28] MEDS: SACUBITRIL/VALSARTAN 24 MG-26 MG TABLET PO SCH ×2 (10:04→21:51)
[2024-06-28] MEDS: SPIRONOLACTONE 25 MG TABLET PO SCH (10:04)
[2024-06-28] MEDS: MUPIROCIN 2% TOPICAL OINTMENT FOR DECOLONIZATION NS SCH (10:05)
[2024-06-28] MEDS: FUROSEMIDE 40 MG/4 ML INJECTABLE VIAL IVPUSH SCH (10:05)
[2024-06-28] MEDS: HEPARIN NA (PORCINE) 5,000 UNITS/ML 1ML VIAL SQ SCH ×2 (10:05→21:56)
[2024-06-28] MEDS ORDERED: FLU VACCINE (FLULAVAL) PF 45 MCG/0.5 ML SYRINGE 2024-2025 IM ONE (10:15)
[2024-06-28 12:14] LABS: HEMATOCRIT 36.8 % (32.4-45.2); HEMOGLOBIN 11.6 GM/dL (10.7-15.3); MCH 28.3 pg (25.7-33.7); MCHC 31.5 g/dl (32.0-36.0); MEAN CELL VOLUME 89.8 fl (80-96); MEAN PLT VOLUME 9.8 fl (7.5-11.1); PLATELET COUNT 252 10^3/uL (134-434); RDW 16.7 % (11.6-15.6); WHITE BLOOD COUNT 7.9 K/mm3 (4.0-10.0)
[2024-06-28 12:36] LABS: POTASSIUM 3.9 mmol/L (3.5-5.1)
[2024-06-28 12:39] LABS: CALCIUM 9.2 mg/dL (8.5-10.1)
[2024-06-28 12:40] LABS: BLOOD UREA NITROGEN 53.9 mg/dL (7-18); MAGNESIUM 2.2 mg/dL (1.8-2.4)
[2024-06-28 12:43] LABS: PHOSPHOROUS 4.1 mg/dL (2.5-4.9)
[2024-06-28 12:44] LABS: BILIRUBIN,TOTAL 0.6 mg/dL (0.2-1); TOT PROT 6.2 g/dl (6.4-8.2)
[2024-06-28] MEDS: hydrALAZINE HCL 50 MG TABLET (FP) PO SCH ×2 (14:19→21:51)
[2024-06-28] MEDS: AZITHROMYCIN IVPB 500 MG/250 ML BAG IVPB SCH (16:15)
[2024-06-28] MEDS: CEFTRIAXONE 1 GM in DEXTROSE 5%-WATER - 50 ML IVPB SCH (16:15)
[2024-06-28] MEDS: ATORVASTATIN CA 40 MG TABLET (FP) PO SCH (21:51)
[2024-06-28] MEDS: EZETIMIBE 10 MG TABLET (FP) PO SCH (21:51)
[2024-06-28] MEDS ORDERED: CHLORHEXIDINE GLUCONATE 4% CLEANSER FOR DECOLONIZATION TP SCH ×2 (22:00)
[2024-06-28] MEDS ORDERED: MUPIROCIN 2% TOPICAL OINTMENT FOR DECOLONIZATION NS SCH (22:00)
[2024-06-29] MEDS: EMPAGLIFLOZIN (JARDIANCE) 10 MG TABLET PO SCH (06:06)
[2024-06-29] MEDS: ISOSORBIDE DINITRATE 5 MG TABLET PO SCH (08:13)
[2024-06-29 08:47] LABS: BASO % 0.6 % (0-2.0); EOS % 1.2 % (0-4.5); HEMATOCRIT 31.8 % (32.4-45.2); HEMOGLOBIN 10.3 GM/dL (10.7-15.3); LYMPH % 19.3 % (8-40); MCH 28.6 pg (25.7-33.7); MCHC 32.5 g/dl (32.0-36.0); MEAN PLT VOLUME 8.9 fl (7.5-11.1); MONO % 11.6 % (3.8-10.2); NEUT % 67.3 % (42.8-82.8); PLATELET COUNT 252 10^3/uL (134-434); RBC 3.61 M/mm3 (3.60-5.2); RDW 16.6 % (11.6-15.6); WHITE BLOOD COUNT 5.8 K/mm3 (4.0-10.0)
[2024-06-29 08:53] LABS: ALBUMIN 2.7 g/dl (3.4-5.0)
[2024-06-29 08:54] LABS: BILIRUBIN,TOTAL 0.5 mg/dL (0.2-1); TOT PROT 5.4 g/dl (6.4-8.2)
[2024-06-29 08:57] LABS: BLOOD UREA NITROGEN 46.4 mg/dL (7-18); PHOSPHOROUS 4.5 mg/dL (2.5-4.9)
[2024-06-29 08:59] LABS: CALCIUM 8.5 mg/dL (8.5-10.1); MAGNESIUM 1.9 mg/dL (1.8-2.4)
[2024-06-29] MEDS: SPIRONOLACTONE 25 MG TABLET PO SCH (09:42)
[2024-06-29] MEDS: metoPROLOL SUCCINATE 25 MG TAB.SR.24H (FP) PO SCH (09:42)
[2024-06-29] MEDS: FUROSEMIDE 40 MG/4 ML INJECTABLE VIAL IVPUSH SCH (09:43)
[2024-06-29] MEDS: predniSONE 20 MG TABLET (UD) PO SCH (17:02)
[2024-06-30 07:29] LABS: BASO % 1.1 % (0-2.0); HEMATOCRIT 33.9 % (32.4-45.2); HEMOGLOBIN 10.9 GM/dL (10.7-15.3); LYMPH % 13.9 % (8-40); MCH 28.6 pg (25.7-33.7); MCHC 32.1 g/dl (32.0-36.0); MEAN PLT VOLUME 9.7 fl (7.5-11.1); PLATELET COUNT 248 10^3/uL (134-434); RBC 3.81 M/mm3 (3.60-5.2); RDW 16.5 % (11.6-15.6); WHITE BLOOD COUNT 6.8 K/mm3 (4.0-10.0)
[2024-06-30 07:46] LABS: ALBUMIN 2.9 g/dl (3.4-5.0); BLOOD UREA NITROGEN 39.8 mg/dL (7-18); CALCIUM 8.4 mg/dL (8.5-10.1)
[2024-06-30 07:50] LABS: CREATININE 2.1 mg/dL (0.55-1.3)
[2024-06-30 07:52] LABS: BILIRUBIN,TOTAL 0.4 mg/dL (0.2-1); TOT PROT 6.2 g/dl (6.4-8.2)
[2024-06-30 11:56] VITALS: BMI 27.3
[2024-07-01 09:00] LABS: BASO % 0.7 % (0-2.0); EOS % 0.1 % (0-4.5); HEMATOCRIT 31.9 % (32.4-45.2); HEMOGLOBIN 10.5 GM/dL (10.7-15.3); LYMPH % 16.8 % (8-40); MEAN PLT VOLUME 9.6 fl (7.5-11.1); MONO % 5.6 % (3.8-10.2); NEUT % 76.8 % (42.8-82.8); PLATELET COUNT 226 10^3/uL (134-434); RBC 3.63 M/mm3 (3.60-5.2); RDW 16.7 % (11.6-15.6); WHITE BLOOD COUNT 8.3 K/mm3 (4.0-10.0)
[2024-07-01 09:18] LABS: POTASSIUM 4.1 mmol/L (3.5-5.1)
[2024-07-01 09:36] LABS: ALBUMIN 2.7 g/dl (3.4-5.0); BLOOD UREA NITROGEN 50.4 mg/dL (7-18); CALCIUM 8.6 mg/dL (8.5-10.1)
[2024-07-01 09:39] LABS: CREATININE 2.2 mg/dL (0.55-1.3)
[2024-07-01 09:40] LABS: URIC ACID 8.6 mg/dL (2.6-7.2)
[2024-07-01 09:41] LABS: BILIRUBIN,TOTAL 0.2 mg/dL (0.2-1); TOT PROT 5.9 g/dl (6.4-8.2)
[2024-07-01 13:12] LABS: MAGNESIUM 2.4 mg/dL (1.8-2.4)
[2024-07-01 22:49] VITALS: RESP 18
[2024-07-02 10:20] VITALS: BP 117/63; PULSE 82; TEMP 98.4
[2024-07-02 10:26] LABS: ALBUMIN 2.9 g/dl (3.4-5.0); BLOOD UREA NITROGEN 57.2 mg/dL (7-18); CALCIUM 9.1 mg/dL (8.5-10.1)
[2024-07-02 10:28] LABS: BILIRUBIN,TOTAL 0.3 mg/dL (0.2-1)
[2024-07-02 10:30] LABS: TOT PROT 6.1 g/dl (6.4-8.2)
== END 2024-07-02 15:00 | disposition home or self-care (01) | DRG 291 ==
LOC: JER 23:25 → JERBED 06-28 04:11 → JICU 06-28 06:44 → J4S 06-28 18:30
PROVIDERS: ADMIT Internal Medicine Pulmonary Disease; ATTEND Internal Medicine
DX: I13.0 Hypertensive heart and chronic kidney disease with heart failure and stage 1 through stage 4 chronic kidney disease, or unspecified chronic kidney disease (principal); I50.23 Acute on chronic systolic (congestive) heart failure; J81.0 Acute pulmonary edema; J96.01 Acute respiratory failure with hypoxia; J96.02 Acute respiratory failure with hypercapnia; N39.0 Urinary tract infection, site not specified; N17.9 Acute kidney failure, unspecified; E78.5 Hyperlipidemia, unspecified; J44.9 Chronic obstructive pulmonary disease, unspecified; N18.9 Chronic kidney disease, unspecified; M10.9 Gout, unspecified; B96.1 Klebsiella pneumoniae [K. pneumoniae] as the cause of diseases classified elsewhere; B96.89 Other specified bacterial agents as the cause of diseases classified elsewhere; N28.1 Cyst of kidney, acquired
CPT/HCPCS: 0241U-QW; 36415; 71045-TC-FY; 71046-TC-FY; 76604; 76705-TC; 80053; 81003; 82803; 83605; 83735; 83880; 84100; 84484; 84550; 85025; 85027; 86704; 86708; 86803; 87086; 87186; 87340; 87517; 93005; 93010; 93308; 94640; 94660; 97116-GP; 97161-GP; 99291; J1644

== ENCOUNTER 2024-07-20 03:27 | Inpatient (IN) | payer OTHER ==
[2024-07-20] MEDS: SODIUM BICARBONATE 8.4% 50 MEQ/50 ML DISP.SYRIN IVPUSH ONE (03:35)
[2024-07-20] MEDS: EPINEPHrine 1:10,000 (P-F SYR) 1 MG/10 ML DISP.SYRIN IVPUSH ONE ×2 (03:35→03:40)
[2024-07-20] MEDS: NOREPINEPHRINE 0.9 % NACL 8 MG/250 ML BAG IVPB SCH (03:45)
[2024-07-20] MEDS ORDERED: MIDAZOLAM IN 0.9 % SOD.CHLORID 1 MG/1 ML PLAST..BAG ONE (03:49)
[2024-07-20] MEDS: MIDAZOLAM IN 0.9 % SOD.CHLORID 100 MG/100 ML PLAST..BAG IVPB SCH (04:15)
[2024-07-20] MEDS: MIDAZOLAM 100 MG in SODIUM CHLORIDE 100 ML IVPB SCH (04:15)
[2024-07-20 04:25] LABS: VENOUS BASE EXCESS -15.4 mmol/L (-2-2); VENOUS O2 SATURATION 54.6 % (70-80); VENOUS PCO2 69.9 mmHg (38-52)
[2024-07-20 04:26] LABS: VENOUS PH 6.997 (7.310-7.410)
[2024-07-20 04:31] LABS: INR 1.01 (0.83-1.09); PROTHROMBIN TIME (PATIENT) 11.6 SEC (9.7-13.0)
[2024-07-20 04:34] LABS: ACTIVATED PTT 36.1 SECONDS (25.2-36.5)
[2024-07-20 04:43] LABS: POTASSIUM 5.2 mmol/L (3.5-5.1)
[2024-07-20 04:46] LABS: ALBUMIN 3.3 g/dl (3.4-5.0); BLOOD UREA NITROGEN 36.4 mg/dL (7-18); CALCIUM 8.7 mg/dL (8.5-10.1); MAGNESIUM 2.5 mg/dL (1.8-2.4)
[2024-07-20 04:49] LABS: CREATININE 2.2 mg/dL (0.55-1.3)
[2024-07-20 04:51] LABS: BILIRUBIN,TOTAL 0.4 mg/dL (0.2-1); TOT PROT 6.6 g/dl (6.4-8.2)
[2024-07-20] MEDS ORDERED: VASopressin 20 UNITS/ML VIAL IV ONE (04:52)
[2024-07-20 04:57] LABS: LACTIC ACID 7.7 mmol/L (0.4-2.0)
[2024-07-20] MEDS ORDERED: VASopressin 40 UNITS/100 ML BAG IV SCH (05:00)
[2024-07-20] MEDS: MIDAZOLAM HCL 5 MG/1 ML Single Dose Vial IVPUSH ONE (05:10)
[2024-07-20] MEDS: VASopressin 40 UNITS/100 ML BAG IV SCH (05:15)
[2024-07-20 06:08] LABS: HEMATOCRIT 40.6 % (32.4-45.2); HEMOGLOBIN 12.6 GM/dL (10.7-15.3); MCHC 31.1 g/dl (32.0-36.0); MEAN CELL VOLUME 93.2 fl (80-96); MEAN PLT VOLUME 9.1 fl (7.5-11.1); PLATELET COUNT 272 10^3/uL (134-434); RBC 4.35 M/mm3 (3.60-5.2); RDW 17.8 % (11.6-15.6); WHITE BLOOD COUNT 7.6 K/mm3 (4.0-10.0)
[2024-07-20 06:53] LABS: ANISOCYTOSIS 0
[2024-07-20 06:57] LABS: LACTIC ACID 3.7 mmol/L (0.4-2.0)
[2024-07-20] MEDS ORDERED: PROPOFOL 1,000,000 MCG/100 ML VIAL ONE (08:55)
[2024-07-20] MEDS: PROPOFOL 1,000,000 MCG/100 ML VIAL IVPB SCH (09:00)
[2024-07-20 09:12] LABS: ALLENS TEST POSITIVE; ARTERIAL BLD GAS O2 SATURATION 99.5 % (95-98); ARTERIAL BLOOD GAS BASE EXCESS -5.3 mmol/L (-2-2); ARTERIAL BLOOD GAS PO2 241.6 mmHg (80-100); ARTERIAL BLOOD GAS pH 7.293 (7.350-7.450)
[2024-07-20 09:13] LABS: VENT MODE V-AC; VENT RATE 20
[2024-07-20] MEDS ORDERED: FENTANYL IVPB 500 MCG/100 ML BAG IVPB SCH (09:30)
[2024-07-20] MEDS: FUROSEMIDE 40 MG/4 ML INJECTABLE VIAL IVPUSH SCH (09:55)
[2024-07-20] MEDS: FENTANYL NS IVPB 500 MCG/100 ML BAG IVPB SCH (10:00)
[2024-07-20] MEDS ORDERED: ENOXAPARIN NA (PORCINE) 30 MG/0.3 ML DISP.SYRIN SQ SCH (10:00)
[2024-07-20] MEDS: MUPIROCIN 2% TOPICAL OINTMENT FOR DECOLONIZATION NS SCH (13:08)
[2024-07-20] MEDS: HEPARIN NA (PORCINE) 5,000 UNITS/ML 1ML VIAL SQ SCH (14:23)
[2024-07-20 21:43] LABS: ALLENS TEST POSITIVE; ARTERIAL BLD GAS O2 SATURATION 98.2 % (95-98); ARTERIAL BLOOD GAS BASE EXCESS -1.7 mmol/L (-2-2); ARTERIAL BLOOD GAS PO2 108.3 mmHg (80-100); ARTERIAL BLOOD GAS pH 7.448 (7.350-7.450)
[2024-07-20 21:44] LABS: VENT MODE A/C; VENT RATE 20
[2024-07-20] MEDS: CHLORHEXIDINE GLUCONATE 4% CLEANSER FOR DECOLONIZATION TP SCH (22:18)
[2024-07-20 22:26] LABS: BASO % 0.3 % (0-2.0); HEMATOCRIT 38.3 % (32.4-45.2); HEMOGLOBIN 12.2 GM/dL (10.7-15.3); LYMPH % 9.6 % (8-40); MCH 28.1 pg (25.7-33.7); MCHC 31.7 g/dl (32.0-36.0); MEAN CELL VOLUME 88.6 fl (80-96); MEAN PLT VOLUME 8.2 fl (7.5-11.1); MONO % 4.2 % (3.8-10.2); NEUT % 85.9 % (42.8-82.8); PLATELET COUNT 252 10^3/uL (134-434); RBC 4.33 M/mm3 (3.60-5.2); RDW 17.3 % (11.6-15.6); WHITE BLOOD COUNT 12.9 K/mm3 (4.0-10.0)
[2024-07-20 22:47] LABS: POTASSIUM 3.9 mmol/L (3.5-5.1)
[2024-07-20 22:51] LABS: ALBUMIN 3.2 g/dl (3.4-5.0); BLOOD UREA NITROGEN 49.2 mg/dL (7-18); MAGNESIUM 2.4 mg/dL (1.8-2.4)
[2024-07-20 22:53] LABS: CREATININE 2.5 mg/dL (0.55-1.3); PHOSPHOROUS 4.5 mg/dL (2.5-4.9)
[2024-07-20 22:55] LABS: BILIRUBIN,TOTAL 0.8 mg/dL (0.2-1); TOT PROT 6.4 g/dl (6.4-8.2)
[2024-07-21 06:21] LABS: ARTERIAL BLD GAS O2 SATURATION 99.2 % (95-98); ARTERIAL BLOOD GAS BASE EXCESS -4.4 mmol/L (-2-2); ARTERIAL BLOOD GAS PO2 168.3 mmHg (80-100); ARTERIAL BLOOD GAS pH 7.444 (7.350-7.450)
[2024-07-21 06:25] LABS: BASO % 0.7 % (0-2.0); HEMATOCRIT 34.6 % (32.4-45.2); HEMOGLOBIN 11.1 GM/dL (10.7-15.3); LYMPH % 12.9 % (8-40); MCH 28.5 pg (25.7-33.7); MCHC 32.1 g/dl (32.0-36.0); MEAN CELL VOLUME 88.7 fl (80-96); MEAN PLT VOLUME 8.1 fl (7.5-11.1); MONO % 5.7 % (3.8-10.2); NEUT % 80.7 % (42.8-82.8); PLATELET COUNT 237 10^3/uL (134-434); RDW 16.8 % (11.6-15.6); WHITE BLOOD COUNT 10.5 K/mm3 (4.0-10.0)
[2024-07-21 06:38] LABS: ALLENS TEST POSITIVE
[2024-07-21 06:39] LABS: VENT MODE A/C; VENT RATE 20
[2024-07-21 06:40] LABS: POTASSIUM 3.8 mmol/L (3.5-5.1)
[2024-07-21 06:46] LABS: BLOOD UREA NITROGEN 50.9 mg/dL (7-18); CALCIUM 8.2 mg/dL (8.5-10.1)
[2024-07-21 06:47] LABS: ALBUMIN 2.7 g/dl (3.4-5.0); MAGNESIUM 2.3 mg/dL (1.8-2.4)
[2024-07-21 06:50] LABS: BILIRUBIN,TOTAL 0.5 mg/dL (0.2-1); CREATININE 2.6 mg/dL (0.55-1.3); PHOSPHOROUS 4.9 mg/dL (2.5-4.9); TOT PROT 5.7 g/dl (6.4-8.2)
[2024-07-21] MEDS: FUROSEMIDE 40 MG/4 ML INJECTABLE VIAL IVPUSH SCH (10:08)
[2024-07-21 14:03] LABS: POTASSIUM 4.2 mmol/L (3.5-5.1)
[2024-07-21 14:05] LABS: CALCIUM 8.6 mg/dL (8.5-10.1)
[2024-07-21 14:06] LABS: BLOOD UREA NITROGEN 52.5 mg/dL (7-18)
[2024-07-21] MEDS: MIDAZOLAM HCL 2 MG/2 ML SINGLE DOSE VIAL IVPUSH ONE ×3 (14:08→17:48)
[2024-07-21 14:10] LABS: BILIRUBIN,TOTAL 0.7 mg/dL (0.2-1); CREATININE 2.6 mg/dL (0.55-1.3)
[2024-07-21 14:12] LABS: TOT PROT 6.2 g/dl (6.4-8.2)
[2024-07-21] MEDS: hydrALAZINE HCL 50 MG TABLET (FP) PO SCH (14:56)
[2024-07-21] MEDS: CARVEDILOL 6.25 MG TABLET (FP) PO SCH (14:56)
[2024-07-21] MEDS: CEFTRIAXONE 1 G/50 ML PREMIX 50 ML IVPB SCH (14:56)
[2024-07-21] MEDS: SPIRONOLACTONE 25 MG TABLET PO SCH (14:56)
[2024-07-21] MEDS: SACUBITRIL/VALSARTAN 49 MG-51 MG TABLET PO SCH (14:57)
[2024-07-21 15:07] LABS: ARTERIAL BLD GAS O2 SATURATION 98.7 % (95-98); ARTERIAL BLOOD GAS BASE EXCESS -3.6 mmol/L (-2-2); ARTERIAL BLOOD GAS PO2 139.2 mmHg (80-100)
[2024-07-21 15:08] LABS: ALLENS TEST POSITIVE
[2024-07-21] MEDS: CEFTRIAXONE 1 GM in DEXTROSE 5%-WATER - 50 ML IVPB SCH (15:36)
[2024-07-21] MEDS ORDERED: DEXMEDETOMIDINE PREMIX 400 MCG/100 ML BAG IVPB ONE (21:10)
[2024-07-21] MEDS: DEXMEDETOMIDINE PREMIX 400 MCG/100 ML BAG IVPB SCH (21:25)
[2024-07-21] MEDS: hydrALAZINE HCL 20 MG/ML VIAL IVPUSH ONE (21:27)
[2024-07-22 06:44] LABS: BASO % 0.4 % (0-2.0); EOS % 0.1 % (0-4.5); HEMOGLOBIN 10.5 GM/dL (10.7-15.3); LYMPH % 13.8 % (8-40); MCH 28.5 pg (25.7-33.7); MCHC 31.8 g/dl (32.0-36.0); MEAN CELL VOLUME 89.4 fl (80-96); MEAN PLT VOLUME 8.6 fl (7.5-11.1); NEUT % 77.7 % (42.8-82.8); PLATELET COUNT 235 10^3/uL (134-434); WHITE BLOOD COUNT 6.9 K/mm3 (4.0-10.0)
[2024-07-22 06:48] LABS: POTASSIUM 3.8 mmol/L (3.5-5.1)
[2024-07-22 06:51] LABS: ALBUMIN 2.8 g/dl (3.4-5.0); BLOOD UREA NITROGEN 57.7 mg/dL (7-18); CALCIUM 8.8 mg/dL (8.5-10.1); MAGNESIUM 2.2 mg/dL (1.8-2.4)
[2024-07-22 06:55] LABS: CREATININE 2.7 mg/dL (0.55-1.3); PHOSPHOROUS 5.3 mg/dL (2.5-4.9)
[2024-07-22 06:56] LABS: BILIRUBIN,TOTAL 0.6 mg/dL (0.2-1); TOT PROT 5.8 g/dl (6.4-8.2)
[2024-07-22] MEDS: ACETAMINOPHEN 325 MG TABLET (FP) PO PRN (11:15)
[2024-07-22 11:59] LABS: N-TERMINAL BNP 5560.1 pg/ml (5-125)
[2024-07-22] MEDS: ISOSORBIDE DINITRATE 5 MG TABLET PO SCH (13:10)
[2024-07-22] MEDS: DEXMEDETOMIDINE PREMIX 400 MCG/100 ML BAG IVPB SCH (14:18)
[2024-07-22 16:06] VITALS: BMI 28.5
[2024-07-23] MEDS: CARVEDILOL 6.25 MG TABLET (FP) PO ONE (02:10)
[2024-07-23] MEDS: CARVEDILOL 6.25 MG TABLET (FP) PO SCH (09:12)
[2024-07-23 12:06] LABS: BASO % 0.8 % (0-2.0); EOS % 0.2 % (0-4.5); HEMATOCRIT 37.3 % (32.4-45.2); HEMOGLOBIN 12.2 GM/dL (10.7-15.3); LYMPH % 10.4 % (8-40); MCH 28.7 pg (25.7-33.7); MCHC 32.6 g/dl (32.0-36.0); MEAN CELL VOLUME 88.1 fl (80-96); MEAN PLT VOLUME 8.6 fl (7.5-11.1); MONO % 5.7 % (3.8-10.2); NEUT % 82.9 % (42.8-82.8); PLATELET COUNT 278 10^3/uL (134-434); RBC 4.24 M/mm3 (3.60-5.2); RDW 16.6 % (11.6-15.6); WHITE BLOOD COUNT 5.7 K/mm3 (4.0-10.0)
[2024-07-23 12:12] LABS: POTASSIUM 4.1 mmol/L (3.5-5.1)
[2024-07-23 12:13] LABS: BLOOD UREA NITROGEN 59.6 mg/dL (7-18); CALCIUM 9.4 mg/dL (8.5-10.1)
[2024-07-23 12:14] LABS: MAGNESIUM 2.4 mg/dL (1.8-2.4)
[2024-07-23 12:17] LABS: CREATININE 2.2 mg/dL (0.55-1.3); PHOSPHOROUS 5.6 mg/dL (2.5-4.9)
[2024-07-23] MEDS: LIDOCAINE 4% PATCH TP ONE (13:05)
[2024-07-23] MEDS: methylPREDNISolone NA SUCC 40 MG/1 ML VIAL IVPUSH ONE (13:06)
[2024-07-23] MEDS ORDERED: PROPOFOL 1,000,000 MCG/100 ML VIAL ONE (18:23)
[2024-07-23] MEDS ORDERED: FENTANYL NS IVPB 500 MCG/100 ML BAG IVPB ONE (18:23)
[2024-07-23] MEDS: LIDOCAINE PATCH REMOVAL MC ONE (21:36)
[2024-07-24 01:06] VITALS: RESP 22
[2024-07-24 02:15] VITALS: BP 140/70; PULSE 76; TEMP 98.6
== END 2024-07-24 03:52 | disposition short-term general hospital (02) | DRG 208 ==
LOC: JER 03:27 → JERBED 04:53 → JICU 08:42 → J4S 07-23 20:48
PROVIDERS: ADMIT Internal Medicine Pulmonary Disease; ATTEND Internal Medicine Pulmonary Disease
PROC: 05HM33Z Insertion of Infusion Device into Right Internal Jugular Vein, Percutaneous Approach (ICD-10-PCS; principal; 2024-07-20)
PROC: 5A1935Z Respiratory Ventilation, Less than 24 Consecutive Hours (ICD-10-PCS; 2024-07-20)
PROC: 0BH17EZ Insertion of Endotracheal Airway into Trachea, Via Natural or Artificial Opening (ICD-10-PCS; 2024-07-20)
DX: J96.01 Acute respiratory failure with hypoxia (principal); J81.0 Acute pulmonary edema; I46.9 Cardiac arrest, cause unspecified; I50.23 Acute on chronic systolic (congestive) heart failure; N17.9 Acute kidney failure, unspecified; I13.0 Hypertensive heart and chronic kidney disease with heart failure and stage 1 through stage 4 chronic kidney disease, or unspecified chronic kidney disease; E87.0 Hyperosmolality and hypernatremia; J96.02 Acute respiratory failure with hypercapnia; J44.9 Chronic obstructive pulmonary disease, unspecified; I10 Essential (primary) hypertension; E78.5 Hyperlipidemia, unspecified; M10.9 Gout, unspecified; N28.1 Cyst of kidney, acquired; N18.9 Chronic kidney disease, unspecified; R79.89 Other specified abnormal findings of blood chemistry
CPT/HCPCS: 0241U-QW; 36415; 36600; 70450-TC; 71045-TC-FY; 80048; 80053; 82550; 82553; 82803; 82962; 83605; 83735; 83880; 84100; 84484; 85025; 85610; 85730; 86850; 86900; 86901; 87481; 93005; 93010; 93306-TC; 94002; 97116-GP; 97161-GP; 99291; J1644; J3490

== ENCOUNTER 2024-08-12 23:48 | Inpatient (IN) | payer OTHER ==
[2024-08-12] MEDS ORDERED: RAPID SEQUENCE INTUBATION KIT NR ONE (23:51)
[2024-08-13 00:49] LABS: VENOUS BASE EXCESS -12.2 mmol/L (-2-2); VENOUS O2 SATURATION 19.9 % (70-80); VENOUS PCO2 122.4 mmHg (38-52); VENOUS PH 6.906 (7.310-7.410)
[2024-08-13 00:52] LABS: BASO % 0.8 % (0-2.0); EOS % 4.5 % (0-4.5); HEMATOCRIT 40.2 % (32.4-45.2); HEMOGLOBIN 12.4 GM/dL (10.7-15.3); LYMPH % 48.8 % (8-40); MCH 28.9 pg (25.7-33.7); MCHC 30.8 g/dl (32.0-36.0); MEAN PLT VOLUME 9.9 fl (7.5-11.1); MONO % 6.7 % (3.8-10.2); NEUT % 39.2 % (42.8-82.8); PLATELET COUNT 239 10^3/uL (134-434); RBC 4.28 M/mm3 (3.60-5.2); RDW 18.2 % (11.6-15.6)
[2024-08-13 00:58] LABS: INR 1.01 (0.83-1.09); PROTHROMBIN TIME (PATIENT) 11.6 SEC (9.7-13.0)
[2024-08-13 01:01] LABS: ACTIVATED PTT 31.9 SECONDS (25.2-36.5)
[2024-08-13 01:10] LABS: POTASSIUM 5.6 mmol/L (3.5-5.1)
[2024-08-13 01:12] LABS: CALCIUM 8.2 mg/dL (8.5-10.1)
[2024-08-13 01:13] LABS: BLOOD UREA NITROGEN 35.8 mg/dL (7-18); MAGNESIUM 2.2 mg/dL (1.8-2.4)
[2024-08-13 01:15] LABS: CREATININE 2.5 mg/dL (0.55-1.3)
[2024-08-13 01:17] LABS: BILIRUBIN,TOTAL 0.3 mg/dL (0.2-1)
[2024-08-13 01:18] LABS: TOT PROT 6.7 g/dl (6.4-8.2)
[2024-08-13 01:21] LABS: N-TERMINAL BNP 4705.7 pg/ml (5-125)
[2024-08-13] MEDS: NITROGLYCERIN 25MG/D5W 250ML 25 MG/250 ML ML IVPB SCH ×2 (01:27)
[2024-08-13 01:46] LABS: LACTIC ACID 2.7 mmol/L (0.4-2.0)
[2024-08-13] MEDS ORDERED: FUROSEMIDE 40 MG/4 ML INJECTABLE VIAL ONE (01:55)
[2024-08-13] MEDS: FUROSEMIDE 40 MG/4 ML INJECTABLE VIAL IVPUSH ONE ×2 (02:18→03:50)
[2024-08-13 02:52] LABS: ARTERIAL BLOOD GAS BASE EXCESS -8.5 mmol/L (-2-2); ARTERIAL BLOOD GAS PO2 102.1 mmHg (80-100); ARTERIAL BLOOD GAS pH 7.276 (7.350-7.450)
[2024-08-13 02:53] LABS: ALLENS TEST POSITIVE
[2024-08-13 02:54] LABS: VENT MODE S/T; VENT RATE 12
[2024-08-13] MEDS: PIPERACILLIN/TAZOB 2.25 GM 2.25 GM in DEXTROSE 5%-WATER - 50 ML IVPB SCH (04:15)
[2024-08-13] MEDS: ALBUTEROL SO4 2.5/IPRATROPIUM 0.5 INH SOL 3 ML VIAL.NEB. NEB SCH (04:19)
[2024-08-13] MEDS: CEFTRIAXONE 1 G/50 ML PREMIX 50 ML IVPB SCH (05:06)
[2024-08-13] MEDS: HEPARIN NA (PORCINE) 5,000 UNITS/ML 1ML VIAL SQ SCH (05:08)
[2024-08-13] MEDS: AZITHROMYCIN IVPB 500 MG/250 ML BAG IVPB SCH (06:19)
[2024-08-13 06:21] LABS: BASO % 0.4 % (0-2.0); EOS % 0.1 % (0-4.5); HEMATOCRIT 38.8 % (32.4-45.2); HEMOGLOBIN 12.1 GM/dL (10.7-15.3); LYMPH % 8.8 % (8-40); MCH 28.3 pg (25.7-33.7); MCHC 31.1 g/dl (32.0-36.0); MEAN PLT VOLUME 9.2 fl (7.5-11.1); MONO % 3.7 % (3.8-10.2); PLATELET COUNT 191 10^3/uL (134-434); RBC 4.27 M/mm3 (3.60-5.2); RDW 17.3 % (11.6-15.6); WHITE BLOOD COUNT 8.7 K/mm3 (4.0-10.0)
[2024-08-13 06:42] LABS: POTASSIUM 4.3 mmol/L (3.5-5.1)
[2024-08-13 07:10] LABS: CREATININE 2.2 mg/dL (0.55-1.3); PHOSPHOROUS 4.3 mg/dL (2.5-4.9)
[2024-08-13 07:11] LABS: BILIRUBIN,TOTAL 0.4 mg/dL (0.2-1); TOT PROT 6.2 g/dl (6.4-8.2)
[2024-08-13 07:32] LABS: ALBUMIN 2.9 g/dl (3.4-5.0); BLOOD UREA NITROGEN 44.2 mg/dL (7-18); CALCIUM 8.5 mg/dL (8.5-10.1)
[2024-08-13] MEDS ORDERED: ACETAMINOPHEN 325 MG TABLET (FP) PO PRN (09:58)
[2024-08-13] MEDS ORDERED: ALBUTEROL SO4 2.5/IPRATROPIUM 0.5 INH SOL 3 ML VIAL.NEB. NEB PRN (10:00)
[2024-08-13] MEDS: PANTOPRAZOLE SODIUM 40 MG VIAL IVPUSH SCH (10:49)
[2024-08-13] MEDS: ACETAMINOPHEN 1000 MG/100 ML BAG IVPB ONE (11:49)
[2024-08-13] MEDS: COLCHICINE 0.6 MG CAPSULE PO SCH (12:35)
[2024-08-13 14:24] VITALS: BMI 29.3
[2024-08-13] MEDS: ASPIRIN COATED 81 MG TABLET.EC PO SCH (15:41)
[2024-08-13] MEDS: MUPIROCIN 2% TOPICAL OINTMENT FOR DECOLONIZATION NS SCH (16:00)
[2024-08-13] MEDS ORDERED: EZETIMIBE 10 MG TABLET (FP) PO SCH (22:00)
[2024-08-13] MEDS ORDERED: CHLORHEXIDINE GLUCONATE 4% CLEANSER FOR DECOLONIZATION TP SCH (22:00)
[2024-08-13] MEDS: ATORVASTATIN CA 40 MG TABLET (FP) PO SCH (22:56)
[2024-08-13] MEDS: CARVEDILOL 12.5 MG TABLET (FP) PO SCH (22:56)
[2024-08-14 07:56] LABS: INR 1.26 (0.83-1.09); PROTHROMBIN TIME (PATIENT) 14.1 SEC (9.7-13.0)
[2024-08-14 07:59] LABS: ACTIVATED PTT 35.1 SECONDS (25.2-36.5)
[2024-08-14 08:15] LABS: BASO % 0.4 % (0-2.0); HEMATOCRIT 29.5 % (32.4-45.2); HEMOGLOBIN 9.4 GM/dL (10.7-15.3); LYMPH % 14.5 % (8-40); MCHC 31.7 g/dl (32.0-36.0); MEAN CELL VOLUME 88.3 fl (80-96); MEAN PLT VOLUME 9.1 fl (7.5-11.1); MONO % 4.3 % (3.8-10.2); NEUT % 79.8 % (42.8-82.8); PLATELET COUNT 160 10^3/uL (134-434); POTASSIUM 3.3 mmol/L (3.5-5.1); RBC 3.34 M/mm3 (3.60-5.2); RDW 17.5 % (11.6-15.6)
[2024-08-14 08:33] LABS: ALBUMIN 2.4 g/dl (3.4-5.0); BLOOD UREA NITROGEN 48.5 mg/dL (7-18); CALCIUM 8.4 mg/dL (8.5-10.1); MAGNESIUM 1.9 mg/dL (1.8-2.4)
[2024-08-14 08:36] LABS: CREATININE 2.3 mg/dL (0.55-1.3)
[2024-08-14 08:37] LABS: BILIRUBIN,TOTAL 0.4 mg/dL (0.2-1)
[2024-08-14] MEDS ORDERED: AMIODARONE HCL 200 MG TABLET PO SCH (10:00)
[2024-08-14] MEDS ORDERED: SPIRONOLACTONE 25 MG TABLET PO SCH (10:00)
[2024-08-14] MEDS ORDERED: hydrALAZINE HCL 25 MG TABLET (FP) PO SCH (10:00)
[2024-08-14] MEDS: EMPAGLIFLOZIN (JARDIANCE) 10 MG TABLET PO SCH (10:31)
[2024-08-14] MEDS ORDERED: COLCHICINE 0.6 MG TAB PO SCH (10:44)
[2024-08-14] MEDS: COLCHICINE 0.6 MG TAB PO SCH (11:04)
[2024-08-14] MEDS ORDERED: ISOSORBIDE DINITRATE 5 MG TABLET PO SCH (13:00)
[2024-08-14] MEDS: FUROSEMIDE 40 MG/4 ML INJECTABLE VIAL IVPB SCH (14:49)
[2024-08-14] MEDS: SACUBITRIL/VALSARTAN 49 MG-51 MG TABLET PO SCH (21:17)
[2024-08-14] MEDS ORDERED: ATORVASTATIN CA 80 MG TABLET (FP) PO SCH (22:00)
[2024-08-14] MEDS ORDERED: CARVEDILOL 6.25 MG TABLET (FP) PO SCH (22:00)
[2024-08-16 06:30] LABS: BASO % 0.8 % (0-2.0); EOS % 6.8 % (0-4.5); HEMATOCRIT 28.7 % (32.4-45.2); HEMOGLOBIN 9.2 GM/dL (10.7-15.3); LYMPH % 25.6 % (8-40); MCH 28.3 pg (25.7-33.7); MEAN CELL VOLUME 88.5 fl (80-96); MEAN PLT VOLUME 9.1 fl (7.5-11.1); MONO % 7.3 % (3.8-10.2); NEUT % 59.5 % (42.8-82.8); PLATELET COUNT 172 10^3/uL (134-434); RBC 3.24 M/mm3 (3.60-5.2); WHITE BLOOD COUNT 6.6 K/mm3 (4.0-10.0)
[2024-08-16 06:39] LABS: POTASSIUM 3.3 mmol/L (3.5-5.1)
[2024-08-16 06:41] LABS: ALBUMIN 2.4 g/dl (3.4-5.0); BLOOD UREA NITROGEN 36.9 mg/dL (7-18); CALCIUM 8.3 mg/dL (8.5-10.1)
[2024-08-16 06:44] LABS: CREATININE 2.1 mg/dL (0.55-1.3)
[2024-08-16 06:46] LABS: BILIRUBIN,TOTAL 0.4 mg/dL (0.2-1); TOT PROT 5.1 g/dl (6.4-8.2)
[2024-08-16] MEDS: FUROSEMIDE 40 MG TABLET (FP) PO SCH ×2 (10:39→14:51)
[2024-08-16] MEDS: POTASSIUM CHLORIDE TABS 20 MEQ TABLET.ER (FP) PO ONE ×2 (10:39→10:40)
[2024-08-16] MEDS: CARVEDILOL 25 MG TABLET (FP) PO SCH (10:40)
[2024-08-16] MEDS: SPIRONOLACTONE 25 MG TABLET PO SCH (10:40)
[2024-08-17 06:51] LABS: BASO % 1.1 % (0-2.0); HEMATOCRIT 30.9 % (32.4-45.2); HEMOGLOBIN 9.8 GM/dL (10.7-15.3); LYMPH % 33.1 % (8-40); MCH 28.2 pg (25.7-33.7); MCHC 31.9 g/dl (32.0-36.0); MEAN CELL VOLUME 88.4 fl (80-96); MEAN PLT VOLUME 8.9 fl (7.5-11.1); MONO % 9.9 % (3.8-10.2); NEUT % 47.9 % (42.8-82.8); PLATELET COUNT 192 10^3/uL (134-434); RBC 3.49 M/mm3 (3.60-5.2); RDW 16.4 % (11.6-15.6); WHITE BLOOD COUNT 5.6 K/mm3 (4.0-10.0)
[2024-08-17 07:10] LABS: POTASSIUM 3.4 mmol/L (3.5-5.1)
[2024-08-17 07:13] LABS: CALCIUM 8.6 mg/dL (8.5-10.1)
[2024-08-17 07:14] LABS: ALBUMIN 2.5 g/dl (3.4-5.0); BLOOD UREA NITROGEN 36.3 mg/dL (7-18)
[2024-08-17 07:17] LABS: CREATININE 2.1 mg/dL (0.55-1.3)
[2024-08-17 07:18] LABS: BILIRUBIN,TOTAL 0.9 mg/dL (0.2-1)
[2024-08-17 07:19] LABS: TOT PROT 5.6 g/dl (6.4-8.2)
[2024-08-17] MEDS: PANTOPRAZOLE 40 MG TABLET PO SCH (10:07)
[2024-08-17 15:08] LABS: MAGNESIUM 1.7 mg/dL (1.8-2.4)
[2024-08-17 15:11] LABS: PHOSPHOROUS 3.7 mg/dL (2.5-4.9)
[2024-08-17] MEDS: POTASSIUM CHLORIDE ORAL LIQUID 20 MEQ/15 ML PO ONE (15:43)
[2024-08-17 17:33] VITALS: RESP 18
[2024-08-18 06:33] VITALS: TEMP 98.2
[2024-08-18] MEDS ORDERED: ACETAMINOPHEN 325 MG TABLET (FP) PO PRN (08:03)
[2024-08-18 09:09] LABS: BASO % 0.9 % (0-2.0); EOS % 8.4 % (0-4.5); HEMATOCRIT 33.5 % (32.4-45.2); HEMOGLOBIN 10.9 GM/dL (10.7-15.3); LYMPH % 35.2 % (8-40); MCH 28.4 pg (25.7-33.7); MCHC 32.5 g/dl (32.0-36.0); MEAN CELL VOLUME 87.6 fl (80-96); MONO % 11.8 % (3.8-10.2); NEUT % 43.7 % (42.8-82.8); PLATELET COUNT 217 10^3/uL (134-434); RBC 3.83 M/mm3 (3.60-5.2); RDW 17.1 % (11.6-15.6); WHITE BLOOD COUNT 4.5 K/mm3 (4.0-10.0)
[2024-08-18 09:46] LABS: POTASSIUM 3.9 mmol/L (3.5-5.1)
[2024-08-18 09:54] VITALS: BP 117/54; PULSE 70
[2024-08-18 10:02] LABS: ALBUMIN 2.9 g/dl (3.4-5.0); BLOOD UREA NITROGEN 38.2 mg/dL (7-18); CALCIUM 9.4 mg/dL (8.5-10.1)
[2024-08-18 10:05] LABS: CREATININE 2.3 mg/dL (0.55-1.3)
[2024-08-18 10:07] LABS: BILIRUBIN,TOTAL 0.3 mg/dL (0.2-1)
[2024-08-18 10:08] LABS: TOT PROT 6.1 g/dl (6.4-8.2)
[2024-08-18] MEDS: HEPARIN NA (PORCINE) 5,000 UNITS/ML 1ML VIAL SQ SCH (13:45)
== END 2024-08-18 17:50 | DRG 189 ==
LOC: JER 23:48 → JERBED 08-13 02:26 → JICU 08-13 03:03 → J4S 08-13 12:40
PROVIDERS: ADMIT Internal Medicine; ATTEND Internal Medicine
DX: J81.0 Acute pulmonary edema (principal); J96.01 Acute respiratory failure with hypoxia; J96.02 Acute respiratory failure with hypercapnia; I13.0 Hypertensive heart and chronic kidney disease with heart failure and stage 1 through stage 4 chronic kidney disease, or unspecified chronic kidney disease; I16.1 Hypertensive emergency; N17.9 Acute kidney failure, unspecified; I42.8 Other cardiomyopathies; I50.23 Acute on chronic systolic (congestive) heart failure; E78.5 Hyperlipidemia, unspecified; J44.9 Chronic obstructive pulmonary disease, unspecified; E66.9 Obesity, unspecified; Z68.29 Body mass index [BMI] 29.0-29.9, adult; M10.9 Gout, unspecified; N18.9 Chronic kidney disease, unspecified; N28.1 Cyst of kidney, acquired; Z95.810 Presence of automatic (implantable) cardiac defibrillator
CPT/HCPCS: 0241U-QW; 36415; 36600; 71045-TC-FY; 80053; 80061; 82803; 82962; 83605; 83735; 83880; 84100; 84484; 85025; 85610; 85730; 87040; 87086; 87481; 87899; 93005; 93010; 94640; 94660; 97116-GP; 97162-GP; 99291; J0131; J1644

== ENCOUNTER 2024-09-17 16:07 | Inpatient (IN) | payer OTHER ==
[2024-09-17 17:04] LABS: BASO % 0.3 % (0-2.0); EOS % 27.6 % (0-4.5); HEMATOCRIT 36.3 % (32.4-45.2); HEMOGLOBIN 11.5 GM/dL (10.7-15.3); LYMPH % 14.9 % (8-40); MCH 27.9 pg (25.7-33.7); MCHC 31.8 g/dl (32.0-36.0); MEAN CELL VOLUME 87.8 fl (80-96); MEAN PLT VOLUME 8.4 fl (7.5-11.1); MONO % 7.1 % (3.8-10.2); NEUT % 50.1 % (42.8-82.8); PLATELET COUNT 180 10^3/uL (134-434); RBC 4.13 M/mm3 (3.60-5.2); RDW 17.7 % (11.6-15.6); WHITE BLOOD COUNT 9.5 K/mm3 (4.0-10.0)
[2024-09-17 17:09] LABS: URINE APPEARANCE CLOUDY; URINE BILIRUBIN NEGATIVE (NEGATIVE); URINE COLOR YELLOW; URINE GLUCOSE (UA) NEGATIVE (NEGATIVE); URINE KETONE TRACE (NEGATIVE); URINE LEUK ESTERASE NEGATIVE (NEGATIVE); URINE NITRITE NEGATIVE (NEGATIVE); URINE PROTEIN TRACE (NEGATIVE); URINE UROBILINOGEN 0.2 mg/dL (0.2-1.0)
[2024-09-17 17:18] LABS: INR 1.01 (0.83-1.09); PROTHROMBIN TIME (PATIENT) 11.6 SEC (9.7-13.0)
[2024-09-17 17:21] LABS: ACTIVATED PTT 28.6 SECONDS (25.2-36.5)
[2024-09-17 17:46] LABS: ANISOCYTOSIS 2+; CHLORIDE 110 mmol/L (98-107); MACROCYTOSIS 2+; OVALOCYTE 1+; SODIUM 140 mmol/L (136-145)
[2024-09-17 17:48] LABS: ALBUMIN 3.3 g/dl (3.4-5.0); CALCIUM 8.6 mg/dL (8.5-10.1)
[2024-09-17 17:49] LABS: ANION GAP 8 mmol/L (4-13); CO2 23 mmol/L (21-32); GLUCOSE,RANDOM 102 mg/dL (74-106); MAGNESIUM 2.8 mg/dL (1.8-2.4)
[2024-09-17 17:51] LABS: BLOOD UREA NITROGEN 111.3 mg/dL (7-18)
[2024-09-17 17:52] LABS: CREATININE 6.4 mg/dL (0.55-1.3); PHOSPHOROUS 5.4 mg/dL (2.5-4.9); SGOT/AST 38 U/L (15-37); SGPT/ALT 44 U/L (13-61)
[2024-09-17 17:53] LABS: BILIRUBIN,TOTAL 0.3 mg/dL (0.2-1); TOT PROT 6.4 g/dl (6.4-8.2)
[2024-09-17 17:54] LABS: ALK PHOS 84 U/L (45-117)
[2024-09-18] MEDS ORDERED: ALBUTEROL SO4 2.5/IPRATROPIUM 0.5 INH SOL 3 ML VIAL.NEB. NEB PRN (07:16)
[2024-09-18 08:36] LABS: HEMATOCRIT 34.3 % (32.4-45.2); HEMOGLOBIN 10.9 GM/dL (10.7-15.3); MCH 27.7 pg (25.7-33.7); MCHC 31.8 g/dl (32.0-36.0); MEAN CELL VOLUME 87.1 fl (80-96); PLATELET COUNT 132 10^3/uL (134-434); RBC 3.93 M/mm3 (3.60-5.2); RDW 17.6 % (11.6-15.6); WHITE BLOOD COUNT 8.3 K/mm3 (4.0-10.0)
[2024-09-18 08:56] LABS: CHLORIDE 112 mmol/L (98-107); SODIUM 138 mmol/L (136-145)
[2024-09-18 09:06] LABS: ALBUMIN 2.8 g/dl (3.4-5.0); ANION GAP 8 mmol/L (4-13); CO2 19 mmol/L (21-32); GLUCOSE,RANDOM 83 mg/dL (74-106); MAGNESIUM 2.6 mg/dL (1.8-2.4)
[2024-09-18 09:07] LABS: BLOOD UREA NITROGEN 113.5 mg/dL (7-18)
[2024-09-18 09:08] LABS: CREATININE 5.9 mg/dL (0.55-1.3); SGPT/ALT 70 U/L (13-61)
[2024-09-18 09:09] LABS: BILIRUBIN,TOTAL 0.5 mg/dL (0.2-1); PHOSPHOROUS 5.2 mg/dL (2.5-4.9); SGOT/AST 64 U/L (15-37)
[2024-09-18 09:10] LABS: TOT PROT 5.2 g/dl (6.4-8.2)
[2024-09-18 09:12] LABS: ALK PHOS 74 U/L (45-117)
[2024-09-18 10:33] LABS: ANISOCYTOSIS 0; HELMET CELLS 0; HOWELL-JOLLY BODIES 0; MACROCYTOSIS 0; OVALOCYTE 0; ROULEAU 0; SICKELED CELLS 0; TARGET CELLS 0; TEAR DROP CELLS 0; TOXIC GRANULATION 0
[2024-09-18] MEDS: CARVEDILOL 25 MG TABLET (FP) PO SCH (10:52)
[2024-09-18] MEDS: TRIAMCINOLONE ACET 0.1% OINT 15 GM TUBE TP SCH (10:52)
[2024-09-18] MEDS: ASPIRIN COATED 81 MG TABLET.EC PO SCH (10:53)
[2024-09-18] MEDS: SODIUM CHLORIDE 500 ML IV ONE (16:51)
[2024-09-18] MEDS: methylPREDNISolone NA SUCC 40 MG/1 ML VIAL IVPUSH SCH (19:24)
[2024-09-18] MEDS: HEPARIN NA (PORCINE) 5,000 UNITS/ML 1ML VIAL SQ SCH (21:42)
[2024-09-18] MEDS: ATORVASTATIN CA 80 MG TABLET (FP) PO SCH (21:42)
[2024-09-19 10:07] LABS: BASO % 0.4 % (0-2.0); HEMATOCRIT 34.6 % (32.4-45.2); HEMOGLOBIN 10.9 GM/dL (10.7-15.3); LYMPH % 35.1 % (8-40); MCH 27.4 pg (25.7-33.7); MCHC 31.4 g/dl (32.0-36.0); MEAN CELL VOLUME 87.4 fl (80-96); MEAN PLT VOLUME 8.5 fl (7.5-11.1); MONO % 1.7 % (3.8-10.2); NEUT % 61.8 % (42.8-82.8); PLATELET COUNT 124 10^3/uL (134-434); RBC 3.96 M/mm3 (3.60-5.2); RDW 17.6 % (11.6-15.6); WHITE BLOOD COUNT 4.7 K/mm3 (4.0-10.0)
[2024-09-19 10:26] LABS: CHLORIDE 111 mmol/L (98-107); POTASSIUM 4.9 mmol/L (3.5-5.1); SODIUM 139 mmol/L (136-145)
[2024-09-19 10:30] LABS: ALBUMIN 2.8 g/dl (3.4-5.0); ANION GAP 9 mmol/L (4-13); CALCIUM 8.2 mg/dL (8.5-10.1); CO2 19 mmol/L (21-32)
[2024-09-19 10:31] LABS: GLUCOSE,RANDOM 240 mg/dL (74-106)
[2024-09-19 10:33] LABS: SGPT/ALT 165 U/L (13-61)
[2024-09-19 10:34] LABS: CREATININE 5.3 mg/dL (0.55-1.3); SGOT/AST 113 U/L (15-37)
[2024-09-19 10:35] LABS: BILIRUBIN,TOTAL 0.4 mg/dL (0.2-1)
[2024-09-19 10:36] LABS: ALK PHOS 95 U/L (45-117)
[2024-09-19 10:38] LABS: BLOOD UREA NITROGEN 116.4 mg/dL (7-18)
[2024-09-19 10:42] LABS: TOT PROT 5.6 g/dl (6.4-8.2)
[2024-09-19 12:19] VITALS: BMI 29.0
[2024-09-19] MEDS: CARVEDILOL 12.5 MG TABLET (FP) PO SCH (21:42)
[2024-09-19] MEDS ORDERED: CARVEDILOL 3.125 MG TABLET (FP) PO SCH (22:00)
[2024-09-20] MEDS ORDERED: ALBUTEROL SO4 2.5/IPRATROPIUM 0.5 INH SOL 3 ML VIAL.NEB. NEB PRN (07:51)
[2024-09-20 08:38] LABS: CHLORIDE 112 mmol/L (98-107); SODIUM 138 mmol/L (136-145)
[2024-09-20 08:45] LABS: ALBUMIN 2.8 g/dl (3.4-5.0); CALCIUM 8.4 mg/dL (8.5-10.1); GLUCOSE,RANDOM 155 mg/dL (74-106)
[2024-09-20 08:46] LABS: ANION GAP 9 mmol/L (4-13); CO2 17 mmol/L (21-32)
[2024-09-20 08:48] LABS: CREATININE 4.5 mg/dL (0.55-1.3); SGOT/AST 63 U/L (15-37); SGPT/ALT 145 U/L (13-61)
[2024-09-20 08:50] LABS: BILIRUBIN,TOTAL 0.4 mg/dL (0.2-1); TOT PROT 5.7 g/dl (6.4-8.2)
[2024-09-20 08:51] LABS: ALK PHOS 96 U/L (45-117); BLOOD UREA NITROGEN 120.6 mg/dL (7-18)
[2024-09-20] MEDS: TRIAMCINOLONE ACET 0.1% OINT 15 GM TUBE TP SCH (10:55)
[2024-09-20] MEDS: HEPARIN NA (PORCINE) 5,000 UNITS/ML 1ML VIAL SQ SCH (10:55)
[2024-09-20] MEDS: ASPIRIN COATED 81 MG TABLET.EC PO SCH (10:55)
[2024-09-20] MEDS: methylPREDNISolone NA SUCC 40 MG/1 ML VIAL IVPUSH SCH ×2 (10:56→22:04)
[2024-09-20] MEDS: PANTOPRAZOLE 40 MG TABLET PO SCH (10:56)
[2024-09-20] MEDS: SODIUM BICARBONATE 650 MG TABLET PO SCH (14:43)
[2024-09-21 07:46] LABS: BASO % 0.3 % (0-2.0); EOS % 0.1 % (0-4.5); HEMATOCRIT 31.2 % (32.4-45.2); HEMOGLOBIN 9.8 GM/dL (10.7-15.3); LYMPH % 15.9 % (8-40); MCH 27.4 pg (25.7-33.7); MCHC 31.5 g/dl (32.0-36.0); MEAN CELL VOLUME 86.9 fl (80-96); MEAN PLT VOLUME 9.1 fl (7.5-11.1); MONO % 3.7 % (3.8-10.2); RDW 17.3 % (11.6-15.6); WHITE BLOOD COUNT 10.2 K/mm3 (4.0-10.0)
[2024-09-21 07:55] LABS: CHLORIDE 109 mmol/L (98-107); POTASSIUM 5.1 mmol/L (3.5-5.1); SODIUM 136 mmol/L (136-145)
[2024-09-21 08:02] LABS: ALBUMIN 2.6 g/dl (3.4-5.0); ANION GAP 9 mmol/L (4-13); CALCIUM 8.2 mg/dL (8.5-10.1); CO2 18 mmol/L (21-32); GLUCOSE,RANDOM 176 mg/dL (74-106)
[2024-09-21 08:05] LABS: CREATININE 3.9 mg/dL (0.55-1.3); SGOT/AST 44 U/L (15-37); SGPT/ALT 131 U/L (13-61)
[2024-09-21 08:06] LABS: BILIRUBIN,TOTAL 0.4 mg/dL (0.2-1)
[2024-09-21 08:07] LABS: TOT PROT 5.3 g/dl (6.4-8.2)
[2024-09-21 08:08] LABS: ALK PHOS 80 U/L (45-117)
[2024-09-21 09:30] LABS: PLATELET COUNT 174 10^3/uL (134-434)
[2024-09-21] MEDS: hydrALAZINE HCL 10 MG TABLET PO SCH (12:36)
[2024-09-21] MEDS ORDERED: ISOSORBIDE DINITRATE 5 MG TABLET PO SCH (13:00)
[2024-09-22 10:01] LABS: BASO % 0.4 % (0-2.0); EOS % 4.7 % (0-4.5); HEMATOCRIT 32.6 % (32.4-45.2); HEMOGLOBIN 10.3 GM/dL (10.7-15.3); LYMPH % 26.1 % (8-40); MCH 27.5 pg (25.7-33.7); MCHC 31.8 g/dl (32.0-36.0); MEAN CELL VOLUME 86.7 fl (80-96); MEAN PLT VOLUME 9.3 fl (7.5-11.1); MONO % 7.9 % (3.8-10.2); NEUT % 60.9 % (42.8-82.8); PLATELET COUNT 188 10^3/uL (134-434); RBC 3.76 M/mm3 (3.60-5.2); RDW 17.7 % (11.6-15.6); WHITE BLOOD COUNT 9.5 K/mm3 (4.0-10.0)
[2024-09-22] MEDS: methylPREDNISolone NA SUCC 40 MG/1 ML VIAL IVPUSH SCH (10:04)
[2024-09-22 10:31] LABS: CHLORIDE 113 mmol/L (98-107); POTASSIUM 4.5 mmol/L (3.5-5.1); SODIUM 140 mmol/L (136-145)
[2024-09-22 10:46] LABS: ALBUMIN 2.6 g/dl (3.4-5.0); ANION GAP 7 mmol/L (4-13); CALCIUM 8.1 mg/dL (8.5-10.1); CO2 19 mmol/L (21-32)
[2024-09-22 10:47] LABS: GLUCOSE,RANDOM 89 mg/dL (74-106)
[2024-09-22 10:48] LABS: SGOT/AST 41 U/L (15-37)
[2024-09-22 10:49] LABS: BILIRUBIN,TOTAL 0.4 mg/dL (0.2-1); BLOOD UREA NITROGEN 118.6 mg/dL (7-18); CREATININE 3.3 mg/dL (0.55-1.3)
[2024-09-22 10:51] LABS: ALK PHOS 71 U/L (45-117); SGPT/ALT 122 U/L (13-61)
[2024-09-22 10:52] LABS: TOT PROT 5.2 g/dl (6.4-8.2)
[2024-09-22] MEDS ORDERED: ONDANSETRON 4 MG/2 ML VIAL IVPUSH PRN (16:07)
[2024-09-23 08:36] LABS: BASO % 0.4 % (0-2.0); EOS % 1.6 % (0-4.5); HEMATOCRIT 30.9 % (32.4-45.2); LYMPH % 28.8 % (8-40); MCH 27.8 pg (25.7-33.7); MCHC 32.4 g/dl (32.0-36.0); MEAN CELL VOLUME 85.8 fl (80-96); MEAN PLT VOLUME 9.6 fl (7.5-11.1); MONO % 10.8 % (3.8-10.2); NEUT % 58.4 % (42.8-82.8); PLATELET COUNT 171 10^3/uL (134-434); RDW 17.6 % (11.6-15.6); WHITE BLOOD COUNT 7.3 K/mm3 (4.0-10.0)
[2024-09-23 09:07] LABS: CHLORIDE 112 mmol/L (98-107); POTASSIUM 4.7 mmol/L (3.5-5.1); SODIUM 139 mmol/L (136-145)
[2024-09-23 09:09] LABS: CALCIUM 8.1 mg/dL (8.5-10.1)
[2024-09-23 09:10] LABS: ALBUMIN 2.4 g/dl (3.4-5.0); ANION GAP 7 mmol/L (4-13); CO2 20 mmol/L (21-32); GLUCOSE,RANDOM 101 mg/dL (74-106)
[2024-09-23 09:13] LABS: SGOT/AST 31 U/L (15-37); SGPT/ALT 118 U/L (13-61)
[2024-09-23 09:15] LABS: BILIRUBIN,TOTAL 0.3 mg/dL (0.2-1)
[2024-09-23 09:16] LABS: ALK PHOS 67 U/L (45-117)
[2024-09-23 09:18] LABS: BLOOD UREA NITROGEN 112.4 mg/dL (7-18)
[2024-09-24] MEDS: predniSONE 20 MG TABLET (UD) PO SCH (10:03)
[2024-09-24 14:49] VITALS: BP 122/75; PULSE 70; RESP 18; TEMP 97.7
== END 2024-09-24 14:55 | disposition home or self-care (01) | DRG 683 ==
LOC: JER 16:07 → JERBED 18:33 → J5S 21:57 → J4S 09-19 13:30
PROVIDERS: ADMIT Internal Medicine; ATTEND Internal Medicine
DX: N17.9 Acute kidney failure, unspecified (principal); I13.0 Hypertensive heart and chronic kidney disease with heart failure and stage 1 through stage 4 chronic kidney disease, or unspecified chronic kidney disease; I42.8 Other cardiomyopathies; I50.22 Chronic systolic (congestive) heart failure; J44.9 Chronic obstructive pulmonary disease, unspecified; M10.9 Gout, unspecified; I25.10 Atherosclerotic heart disease of native coronary artery without angina pectoris; N18.9 Chronic kidney disease, unspecified; E78.5 Hyperlipidemia, unspecified; E83.41 Hypermagnesemia; E83.39 Other disorders of phosphorus metabolism; Z86.74 Personal history of sudden cardiac arrest; R21 Rash and other nonspecific skin eruption; N28.1 Cyst of kidney, acquired
CPT/HCPCS: 36415; 71045-TC-FY; 74176-TC; 76775-TC; 80053; 81003; 83036; 83735; 84100; 85025; 85610; 85730; 86850; 86900; 86901; 87045; 87046; 87086; 87186; 87324; 87449; 93005; 93010; 99285-25; J1644

== ENCOUNTER 2024-10-07 20:32 | Observation (INO) | payer BC, OTHER ==
[2024-10-07 20:38] VITALS: BMI 29.8
[2024-10-07] MEDS ORDERED: NITROGLYCERIN 2% OINTMENT - 1GM PACKET TD ONE (22:10)
[2024-10-07] MEDS ORDERED: FUROSEMIDE 40 MG/4 ML INJECTABLE VIAL ONE (22:11)
[2024-10-07] MEDS: FUROSEMIDE 40 MG/4 ML INJECTABLE VIAL IVPUSH ONE (22:21)
[2024-10-07] MEDS: NITROGLYCERIN 2% OINTMENT - 1GM PACKET TD ONE (22:21)
[2024-10-07 22:47] LABS: BASO % 0.4 % (0-2.0); HEMATOCRIT 29.9 % (32.4-45.2); HEMOGLOBIN 9.3 GM/dL (10.7-15.3); LYMPH % 15.7 % (8-40); MCH 28.3 pg (25.7-33.7); MCHC 31.3 g/dl (32.0-36.0); MEAN CELL VOLUME 90.5 fl (80-96); MEAN PLT VOLUME 10.7 fl (7.5-11.1); MONO % 4.3 % (3.8-10.2); NEUT % 74.6 % (42.8-82.8); PLATELET COUNT 135 10^3/uL (134-434); RDW 20.7 % (11.6-15.6); WHITE BLOOD COUNT 8.4 K/mm3 (4.0-10.0)
[2024-10-07 22:55] LABS: INR 1.13 (0.83-1.09); PROTHROMBIN TIME (PATIENT) 12.9 SEC (9.7-13.0)
[2024-10-07 22:57] LABS: ACTIVATED PTT 25.6 SECONDS (25.2-36.5)
[2024-10-07 23:11] LABS: ANISOCYTOSIS 2+; MACROCYTOSIS 0; OVALOCYTE 1+
[2024-10-07 23:20] LABS: POTASSIUM 4.8 mmol/L (3.5-5.1)
[2024-10-07 23:22] LABS: BLOOD UREA NITROGEN 68.1 mg/dL (7-18)
[2024-10-07 23:23] LABS: ALBUMIN 2.7 g/dl (3.4-5.0)
[2024-10-07 23:26] LABS: CREATININE 2.1 mg/dL (0.55-1.3); PHOSPHOROUS 3.2 mg/dL (2.5-4.9)
[2024-10-07 23:27] LABS: BILIRUBIN,TOTAL 0.8 mg/dL (0.2-1)
[2024-10-07 23:28] LABS: TOT PROT 5.4 g/dl (6.4-8.2)
[2024-10-07 23:32] LABS: N-TERMINAL BNP 16011.4 pg/ml (5-125)
[2024-10-07] MEDS ORDERED: DOCUSATE SODIUM 100 MG CAPSULE (FP) PO PRN (23:47)
[2024-10-08] MEDS: hydrALAZINE HCL 20 MG/ML VIAL IM ONE (04:23)
[2024-10-08] MEDS ORDERED: hydrALAZINE HCL 50 MG TABLET (FP) ONE ×2 (06:42→10:10)
[2024-10-08] MEDS: hydrALAZINE HCL 50 MG TABLET (FP) PO SCH (06:44)
[2024-10-08 07:13] LABS: BASO % 0.6 % (0-2.0); EOS % 8.5 % (0-4.5); HEMATOCRIT 28.4 % (32.4-45.2); LYMPH % 16.1 % (8-40); MCH 28.3 pg (25.7-33.7); MCHC 31.9 g/dl (32.0-36.0); MEAN CELL VOLUME 88.7 fl (80-96); MEAN PLT VOLUME 10.5 fl (7.5-11.1); MONO % 7.4 % (3.8-10.2); NEUT % 67.4 % (42.8-82.8); PLATELET COUNT 97 10^3/uL (134-434); RDW 20.4 % (11.6-15.6)
[2024-10-08 08:25] LABS: BLOOD UREA NITROGEN 65.3 mg/dL (7-18); CALCIUM 8.3 mg/dL (8.5-10.1); CREATININE 2.1 mg/dL (0.55-1.3); MAGNESIUM 1.8 mg/dL (1.8-2.4); POTASSIUM 3.6 mmol/L (3.5-5.1)
[2024-10-08] MEDS ORDERED: FUROSEMIDE 40 MG TABLET (FP) ONE (10:10)
[2024-10-08] MEDS ORDERED: CARVEDILOL 25 MG TABLET (FP) ONE (10:10)
[2024-10-08] MEDS ORDERED: ISOSORBIDE MONONITRATE 60 MG TAB.SR.24H (FP) PO ONE (10:11)
[2024-10-08] MEDS: SODIUM BICARBONATE 650 MG TABLET PO SCH (10:18)
[2024-10-08] MEDS: FUROSEMIDE 40 MG TABLET (FP) PO SCH ×2 (10:18→17:46)
[2024-10-08] MEDS: ISOSORBIDE MONONITRATE 60 MG TAB.SR.24H (FP) PO SCH (10:18)
[2024-10-08] MEDS: CARVEDILOL 25 MG TABLET (FP) PO SCH (10:19)
[2024-10-08] MEDS: ACETAMINOPHEN 325 MG TABLET (FP) PO PRN (17:46)
[2024-10-08] MEDS: ATORVASTATIN CA 80 MG TABLET (FP) PO SCH (22:06)
[2024-10-09 19:15] VITALS: RESP 18
[2024-10-10 08:13] LABS: BASO % 0.6 % (0-2.0); EOS % 11.5 % (0-4.5); HEMATOCRIT 25.9 % (32.4-45.2); HEMOGLOBIN 8.3 GM/dL (10.7-15.3); LYMPH % 14.7 % (8-40); MCH 28.3 pg (25.7-33.7); MCHC 32.1 g/dl (32.0-36.0); MEAN CELL VOLUME 88.3 fl (80-96); MEAN PLT VOLUME 9.5 fl (7.5-11.1); MONO % 10.8 % (3.8-10.2); NEUT % 62.4 % (42.8-82.8); PLATELET COUNT 83 10^3/uL (134-434); RBC 2.93 M/mm3 (3.60-5.2); RDW 20.6 % (11.6-15.6); WHITE BLOOD COUNT 5.4 K/mm3 (4.0-10.0)
[2024-10-10 08:34] LABS: POTASSIUM 3.8 mmol/L (3.5-5.1)
[2024-10-10 08:51] LABS: ALBUMIN 2.6 g/dl (3.4-5.0); BLOOD UREA NITROGEN 60.4 mg/dL (7-18)
[2024-10-10 08:53] LABS: CALCIUM 8.1 mg/dL (8.5-10.1)
[2024-10-10 08:54] LABS: CREATININE 2.3 mg/dL (0.55-1.3)
[2024-10-10 08:55] LABS: BILIRUBIN,TOTAL 0.6 mg/dL (0.2-1); TOT PROT 4.9 g/dl (6.4-8.2)
[2024-10-10] MEDS: ISOSORBIDE DINITRATE 5 MG TABLET PO SCH (12:02)
[2024-10-10 14:48] VITALS: BP 143/84; PULSE 77; TEMP 99
== END 2024-10-10 14:50 | disposition home or self-care (01) ==
LOC: JER 20:32 → JERBED 23:49 → J4S 10-08 17:22
PROVIDERS: ADMIT Internal Medicine; ATTEND Internal Medicine
PROC: 3E033GC Introduction of Other Therapeutic Substance into Peripheral Vein, Percutaneous Approach (ICD-10-PCS; principal; 2024-10-07)
PROC: 3E023GC Introduction of Other Therapeutic Substance into Muscle, Percutaneous Approach (ICD-10-PCS; 2024-10-07)
DX: I50.23 Acute on chronic systolic (congestive) heart failure (principal); R79.89 Other specified abnormal findings of blood chemistry; N17.9 Acute kidney failure, unspecified; I13.0 Hypertensive heart and chronic kidney disease with heart failure and stage 1 through stage 4 chronic kidney disease, or unspecified chronic kidney disease; I11.0 Hypertensive heart disease with heart failure; E78.5 Hyperlipidemia, unspecified; R06.00 Dyspnea, unspecified; J44.9 Chronic obstructive pulmonary disease, unspecified; N28.1 Cyst of kidney, acquired; M10.9 Gout, unspecified; N18.9 Chronic kidney disease, unspecified; Z95.810 Presence of automatic (implantable) cardiac defibrillator; Z87.891 Personal history of nicotine dependence
CPT/HCPCS: 0241U-QW; 36415; 71046-TC-FY; 76705-TC; 80048; 80053; 83735; 83880; 84100; 84484; 85025; 85610; 85730; 93005; 93010; 96372; 96374; 99285-25; G0378

== ENCOUNTER 2025-07-08 22:18 | Inpatient (IN) | payer OTHER ==
[2025-07-08] MEDS: NITROGLYCERIN SUBLINGUAL 1/150 0.4 MG TAB SL ONE (22:22)
[2025-07-08] MEDS: NITROGLYCERIN 2% OINTMENT - 1GM PACKET TD ONE (22:22)
[2025-07-08] MEDS ORDERED: NITROGLYCERIN SUBLINGUAL 1/150 0.4 MG TAB ONE ×2 (22:22→22:29)
[2025-07-08] MEDS ORDERED: NITROGLYCERIN 2% OINTMENT - 1GM PACKET TD ONE (22:22)
[2025-07-08 22:30] VITALS: BMI 25.9
[2025-07-08] MEDS ORDERED: FUROSEMIDE 40 MG/4 ML INJECTABLE VIAL ONE (22:44)
[2025-07-08] MEDS ORDERED: NITROGLYCERIN 50 MG/10 ML VIAL IVPB SCH (22:45)
[2025-07-08] MEDS: FUROSEMIDE 40 MG/4 ML INJECTABLE VIAL IVPUSH ONE (22:57)
[2025-07-08 23:09] LABS: ABSOLUTE IMMATURE GRANULOCYTES 0.01 x10^3/uL (0.0-0.031); BASOPHILS # 0.05 x10^3/uL (0.01-0.08); EOSINOPHIL % 3.1 % (0.7-5.8); EOSINOPHILS # 0.20 x10^3/uL (0.04-0.36); MCHC 31.2 g/dl (32.2-35.5); MEAN CELL VOLUME 93.1 fl (79.4-94.8); MEAN PLT VOLUME 10.3 fl (9.4-12.3); MONOCYTE # 0.43 x10^3/uL (0.24-0.86); MONOCYTE % 6.6 % (4.7-12.5); RDW 15.7 % (12.4-16.4)
[2025-07-08 23:12] LABS: BG HCT 38.0 % (32.4-45.2); VENOUS BASE EXCESS -1.7 mmol/L (-2-2); VENOUS O2 SATURATION 94.4 % (70-80); VENOUS PCO2 46.3 mmHg (38-52); VENOUS PH 7.339 (7.310-7.410)
[2025-07-08 23:23] LABS: ACTIVATED PTT 31.9 SECONDS (25.2-36.5); GLUCOSE,RANDOM 130 mg/dL (74-106); INR 1.15 (0.83-1.09); PROTHROMBIN TIME (PATIENT) 12.6 SEC (9.7-13.0)
[2025-07-08 23:24] LABS: TOT PROT 8.4 g/dl (6.4-8.2)
[2025-07-08 23:25] LABS: CO2 23 mmol/L (21-32)
[2025-07-08 23:26] LABS: ALK PHOS 110 U/L (40-150)
[2025-07-08 23:29] LABS: SGOT/AST 102 U/L (5-34); SGPT/ALT 44 U/L (0-55)
[2025-07-08 23:30] LABS: CREATININE 1.96 mg/dL (0.55-1.3)
[2025-07-08 23:36] LABS: N-TERMINAL BNP 4124.6 pg/mL (0-299.9)
[2025-07-09 00:18] LABS: GLUCOSE,RANDOM 126.0 mg/dL (74-106)
[2025-07-09 00:19] LABS: CO2 27.0 mmol/L (21-32)
[2025-07-09 00:23] LABS: CREATININE 2.19 mg/dL (0.55-1.3)
[2025-07-09] MEDS ORDERED: hydrALAZINE HCL 50 MG TABLET (FP) ONE (00:52)
[2025-07-09] MEDS ORDERED: hydrALAZINE HCL 25 MG TABLET (FP) ONE (00:52)
[2025-07-09] MEDS: hydrALAZINE HCL 50 MG TABLET (FP) PO ONE (01:03)
[2025-07-09] MEDS ORDERED: NITROGLYCERIN 25MG/D5W 250ML 25 MG/250 ML ML IVPB SCH (03:15)
[2025-07-09] MEDS ORDERED: NITROGLYCERIN 25MG/D5W 250ML 25 MG/250 ML ML IVPB ONE (03:20)
[2025-07-09] MEDS: NITROGLYCERIN 25MG/D5W 250ML 25 MG/250 ML ML IVPB SCH (03:34)
[2025-07-09] MEDS ORDERED: LABETALOL HCL 5 MG/1 ML (100MG/20 ML VIAL) IVPUSH PRN (03:39)
[2025-07-09 04:27] LABS: ABSOLUTE IMMATURE GRANULOCYTES 0.02 x10^3/uL (0.0-0.031); BASOPHILS # 0.02 x10^3/uL (0.01-0.08); EOSINOPHIL % 0.9 % (0.7-5.8); EOSINOPHILS # 0.08 x10^3/uL (0.04-0.36); MCHC 31.4 g/dl (32.2-35.5); MEAN CELL VOLUME 92.3 fl (79.4-94.8); MEAN PLT VOLUME 10.3 fl (9.4-12.3); MONOCYTE # 0.52 x10^3/uL (0.24-0.86); MONOCYTE % 5.7 % (4.7-12.5); RDW 15.5 % (12.4-16.4)
[2025-07-09 04:36] LABS: INR 1.13 (0.83-1.09); PROTHROMBIN TIME (PATIENT) 12.4 SEC (9.7-13.0)
[2025-07-09 04:38] LABS: ACTIVATED PTT 34.5 SECONDS (25.2-36.5)
[2025-07-09 04:48] LABS: GLUCOSE,RANDOM 112.0 mg/dL (74-106); TOT PROT 7.2 g/dl (6.4-8.2)
[2025-07-09 04:49] LABS: CO2 25.0 mmol/L (21-32)
[2025-07-09 04:51] LABS: ALK PHOS 110.0 U/L (40-150)
[2025-07-09 04:54] LABS: CREATININE 2.16 mg/dL (0.55-1.3); SGOT/AST 49.0 U/L (5-34); SGPT/ALT 39.0 U/L (0-55)
[2025-07-09] MEDS: HEPARIN NA (PORCINE) 5,000 UNITS/ML 1ML VIAL SQ SCH (06:07)
[2025-07-09] MEDS: ISOSORBIDE DINITRATE 10 MG TABLET PO SCH (09:30)
[2025-07-09] MEDS: CARVEDILOL 25 MG TABLET (FP) PO SCH (09:30)
[2025-07-09] MEDS: MUPIROCIN 2% TOPICAL OINTMENT FOR DECOLONIZATION NS SCH (09:30)
[2025-07-09] MEDS: APIXABAN 2.5 MG TABLET PO SCH (09:31)
[2025-07-09] MEDS: PANTOPRAZOLE SODIUM 40 MG VIAL IVPUSH SCH (09:31)
[2025-07-09] MEDS ORDERED: hydrALAZINE HCL 25 MG TABLET (FP) PO SCH (14:00)
[2025-07-09] MEDS: CHLORHEXIDINE GLUCONATE 4% CLEANSER FOR DECOLONIZATION TP SCH (21:18)
[2025-07-09] MEDS ORDERED: NITROGLYCERIN 2% OINTMENT - 1GM PACKET TD ONE (22:22)
[2025-07-09] MEDS ORDERED: NITROGLYCERIN SUBLINGUAL 1/150 0.4 MG TAB SL ONE (22:22)
[2025-07-10 05:44] VITALS: RESP 18
[2025-07-10 06:32] LABS: ABSOLUTE IMMATURE GRANULOCYTES 0.02 x10^3/uL (0.0-0.031); BASOPHILS # 0.05 x10^3/uL (0.01-0.08); EOSINOPHIL % 3.1 % (0.7-5.8); EOSINOPHILS # 0.19 x10^3/uL (0.04-0.36); MCHC 31.9 g/dl (32.2-35.5); MEAN CELL VOLUME 91.4 fl (79.4-94.8); MEAN PLT VOLUME 10.2 fl (9.4-12.3); MONOCYTE # 0.74 x10^3/uL (0.24-0.86); MONOCYTE % 12.2 % (4.7-12.5); RDW 15.6 % (12.4-16.4)
[2025-07-10 06:59] LABS: GLUCOSE,RANDOM 85.0 mg/dL (74-106); TOT PROT 6.0 g/dl (6.4-8.2)
[2025-07-10 07:00] LABS: CO2 25.0 mmol/L (21-32)
[2025-07-10 07:02] LABS: ALK PHOS 71.0 U/L (40-150)
[2025-07-10 07:04] LABS: SGOT/AST 22.0 U/L (5-34); SGPT/ALT 17.0 U/L (0-55)
[2025-07-10 07:05] LABS: CREATININE 2.41 mg/dL (0.55-1.3)
[2025-07-10 11:10] VITALS: TEMP 97.9
[2025-07-10 13:33] VITALS: BP 126/77; PULSE 76
== END 2025-07-10 13:56 | disposition home or self-care (01) | DRG 291 ==
LOC: JER 22:18 → JERBED 07-09 01:53 → JICU 07-09 04:59
PROVIDERS: ADMIT Internal Medicine Pulmonary Disease; ATTEND Internal Medicine
DX: I13.0 Hypertensive heart and chronic kidney disease with heart failure and stage 1 through stage 4 chronic kidney disease, or unspecified chronic kidney disease (principal); I50.43 Acute on chronic combined systolic (congestive) and diastolic (congestive) heart failure; J81.0 Acute pulmonary edema; I16.1 Hypertensive emergency; I24.89 Other forms of acute ischemic heart disease; N18.9 Chronic kidney disease, unspecified; I25.10 Atherosclerotic heart disease of native coronary artery without angina pectoris; I48.0 Paroxysmal atrial fibrillation; E78.5 Hyperlipidemia, unspecified; J44.9 Chronic obstructive pulmonary disease, unspecified; I42.8 Other cardiomyopathies; M10.9 Gout, unspecified; Z95.810 Presence of automatic (implantable) cardiac defibrillator
CPT/HCPCS: 36415; 71045-TC-FY; 80048; 80053; 82550; 82803; 83605; 83735; 83880; 84100; 84484; 85025; 85610; 85730; 86850; 86900; 86901; 87070; 87205; 87899; 93005; 93010; 94660; 99291